=== PATIENT | female | born 1970 | race Caucasian/White ===

== ENCOUNTER 2018-11-27 09:10 | Inpatient (IN) ==
--- NOTE | 2018-11-27 09:14 | Emergency Department Note ---
Disposition Clinical Impression: Cough, Recurrent pneumonia, Non-cardiac chest pain, Lung mass, Pleural effusion Disposition: Admitted As Inpatient Referrals: Dakota Rahman DO [Primary Care Provider] - General Adult HPI - General Stated complaint: CP Time Seen by Provider: 11/27/18 09:13 - History of Present Illness HPI Narrative: 48-year-old female reports emergency department complaining of chest pain. The pain is in the middle of the chest radiating to the back. It hurts when she coughs. The patient states she has had pneumonia been treated with 5 rounds of antibiotics since July. She denies a history of prior coronary disease DVT PE or CHF. Per records there is a history of COPD no oxygen requirement. There has been no trauma to the chest. No syncope or leg swelling. No history of CHF. The patient denies abdominal pain, no vomiting diarrhea or currently. There is no history of vaginal discharge bleeding or urinary sy mptoms. No flank pain. No high fevers. The patient describes a recurrent cough. She denies any history of cancer. She has never had a cardiac catheterization or stress test or prior stent. No shortness of breath described. - Related Data Home Medications Medication Instructions Recorded Confirmed Esomeprazole Magnesium [Nexium] 20 mg PO DAILY 12/14/15 09/21/16 Fexofenadine/Pseudoephedrine 1 tab PO DAILY PRN 12/14/15 09/21/16 [Belle-D 24 Hour Tablet] Levothyroxine Sodium [Synthroid] 137 mcg PO DAILY 12/14/15 09/21/16 Lactobacillus [Culturelle] 1 cap PO BID 09/21/16 09/21/16 Previous Rx's Medication Instructions Recorded Acetaminophen [Tylenol] 650 mg PO Q6HR PRN #0 tablet 12/28/15 HYDROcodone/Acet 5/325 mg [[place] 0.5 tab PO Q6HR PRN #15 tablet 12/28/15 5-325 mg] Allergies Allergy/AdvReac Type Severity Reaction Status Date / Time ciprofloxacin [From Cipro] AdvReac Diarrhea Verified 12/14/15 14:21 All systems ED: reviewed and negative except as stated. Past Medical History - Past Medical History Medical history: Reports: COPD, GERD, other Surgical history: Reports: , hysterectomy Psychiatric history: Reports: no psych history - Social History Smoking Status: Current every day smoker Smokeless Tobacco Status: No Alcohol use: Reports: occasionally Drug use: Reports: none Physical Exam - General Limitations: no limitations General appearance: alert, in no apparent distress - Head Head exam: atraumatic, normocephalic, normal inspection - Eye Eye exam: Present: normal appearance, PERRL, EOMI - ENT ENT exam: normal exam, normal oropharynx, mucous membranes moist - Neck Neck exam: Present: normal inspection, full ROM, trachea midline - Chest Chest inspection: Present: normal inspection, symmetric chest wall rise - Respiratory Respiratory exam: Present: normal lung sounds bilaterally. Absent: respiratory distress, prolonged expiratory phase - Cardiovascular Cardiovascular exam: Present: regular rate, normal rhythm, normal heart sounds - Abdominal Exam Abdominal exam: Present: soft, Non-Tender, normal bowel sounds. Absent: tenderness, distention, guarding, rebound, rigidity - Extremities Exam Extremities exam: Present: full ROM, normal capillary refill. Absent: normal inspection (Chronic deformity right upper extremity. The left upper and lower extremities are unremarkable in appearance.), tenderness, pedal edema, joint swelling, calf tenderness - Expanded Lower Extremity Exam Lower leg exam: Absent: Homans' sign Neurovascular/Tendon exam: Present: normal capillary refill. Absent: motor deficit, sensory deficit, tendon deficit, extremity cold to touch, pallor - Back Exam Back exam: Present: normal inspection, full ROM. Absent: tenderness, CVA tenderness (L), muscle spasm - Neurological Exam Neurological exam: Present: alert, oriented X3, CN II-XII intact. Absent: motor sensory deficit - Psychiatric Psychiatric exam: Present: normal affect, normal mood - Skin Skin exam: Present: warm, dry, intact, normal color Course Vital Signs Temperature 98.3 F 11/27/18 09:18 Pulse Rate 98 11/27/18 09:18 Respiratory Rate 11/27/18 09:18 Blood Pressure 134/89 11/27/18 09:18 O2 Sat by Pulse Oximetry 99 11/27/18 09:18 Temperature 98.3 F 11/27/18 09:18 Pulse Rate 98 11/27/18 09:18 Respiratory Rate 11/27/18 09:18 Blood Pressure 134/89 11/27/18 09:18 O2 Sat by Pulse Oximetry 99 11/27/18 09:18 Oxygen Delivery Oxygen Delivery Room Air Medical Decision Making - MDM Narrative Medical decision making narrative: The patient reports emergency department describing chest pain and a cough. She has no personal history of CAD DVT PE or cancer. She has been treated 5 times for pneumonia in the last several months but is not improving. Chest x-ray suggestive of malignancy, CT shows notable abnormalities highly suggestive of malignancy and for possible infiltrate with pleural effusion. The patient is hyponatremic, she has a depressed white count, lactic acid is negative. EKG normal sinus rhythm troponin negative. Azithromycin and Rocephin were ordered. Blood cultures were sent. The patient was given hydrocodone for pain. Based on the patient's apparent extensive malignancy, new diagnosis, with overlapping pneumonia pleural effusion I thought it be appropriate to admit the patient to the hospital. I discussed the case with the hospitalist on-call who has accepted the patient to their care. The patient is agreeable and is currently stable pending admission. - Lab Data Lab results reviewed: Yes I reviewed the patient's lab results. Result diagrams: 11/27/18 09:39 11/27/18 09:39 Lab Results 11/27/18 11/27/18 11/27/18 Range/Units 09:39 09:39 09:39 WBC 4.0 L (4.3-11.1) K/mcL RBC 4.62 (3.82-4.97) M/mcL Hgb 14.3 (11.5-15.4) g/dL Hct 40.1 (35.3-44.9) % MCV 86.8 (83.0-100.0) fL MCH 31.0 (28.0-33.3) pg MCHC 35.7 H (31.6-35.5) g/dL RDW 11.7 (11.5-14.5) % Plt Count 161 (140-400) K/mcL MPV 10.6 (9.4-12.4) fL Immature Gran % 0.5 (0-4) % Seg Neutrophils % 70.6 % Lymphocytes % 19.7 % Monocytes % 8.5 % Eosinophils % 0.5 % Basophils % 0.2 % Neutrophils # 2.8 (1.6-8.9) K/mcL Lymphocytes # 0.8 (0.6-4.6) K/mcL Monocytes # 0.3 (0.0-1.3) K/mcL Eosinophils # 0.0 (0.0-0.6) K/mcL Basophils # 0.0 (0.0-0.2) K/mcL PT 12.0 (9.4-12.1) Seconds INR 1.1 APTT 32.4 (26.0-36.0) Seconds Sodium 126 L (136-145) mEq/L Potassium 3.8 (3.5-5.1) mEq/L Chloride 94 L (98-107) mEq/L Carbon Dioxide 21 L (23-29) mEq/L BUN 7 (6-20) mg/dL Creatinine 0.50 L (0.60-1.20) mg/dL Est GFR ( Amer) > 60 (> 60) Est GFR (Non-Af Amer) > 60 (> 60) BUN/Creatinine Ratio 14 (6-26) Glucose 83 (70-105) mg/dL Calculated Osmolality 259 L (280-300) Lactic Acid (0.5-2.2) mmol/L Calcium 9.7 (8.6-10.3) mg/dL Total Bilirubin 0.6 (0.3-1.0) mg/dL Direct Bilirubin 0.1 (0.0-0.2) mg/dL Indirect Bilirubin 0.5 (0.0-1.2) mg/dL AST 14 (13-39) Units/L ALT 10 (7-52) Units/L Alkaline Phosphatase 61 (34-104) Units/L Troponin I < 0.03 (< 0.04) ng/mL C-Reactive Protein 29 H (Less than 10) mg/L Serum Total Protein 6.6 (6.4-8.9) g/dL Albumin 4.0 (3.5-5.7) g/dL Globulin 2.6 (2.4-3.5) g/dL Albumin/Globulin Ratio 1.5 (1.1-2.2) Lipase 4 L (11-82) Units/L 11/27/18 Range/Units 09:50 WBC (4.3-11.1) K/mcL RBC (3.82-4.97) M/mcL Hgb (11.5-15.4) g/dL Hct (35.3-44.9) % MCV (83.0-100.0) fL MCH (28.0-33.3) pg MCHC (31.6-35.5) g/dL RDW (11.5-14.5) % Plt Count (140-400) K/mcL MPV (9.4-12.4) fL Immature Gran % (0-4) % Seg Neutrophils % % Lymphocytes % % Monocytes % % Eosinophils % % Basophils % % Neutrophils # (1.6-8.9) K/mcL Lymphocytes # (0.6-4.6) K/mcL Monocytes # (0.0-1.3) K/mcL Eosinophils # (0.0-0.6) K/mcL Basophils # (0.0-0.2) K/mcL PT (9.4-12.1) Seconds INR APTT (26.0-36.0) Seconds Sodium (136-145) mEq/L Potassium (3.5-5.1) mEq/L Chloride (98-107) mEq/L Carbon Dioxide (23-29) mEq/L BUN (6-20) mg/dL Creatinine (0.60-1.20) mg/dL Est GFR ( Amer) (> 60) Est GFR (Non-Af Amer) (> 60) BUN/Creatinine Ratio (6-26) Glucose (70-105) mg/dL Calculated Osmolality (280-300) Lactic Acid 0.5 (0.5-2.2) mmol/L Calcium (8.6-10.3) mg/dL Total Bilirubin (0.3-1.0) mg/dL Direct Bilirubin (0.0-0.2) mg/dL Indirect Bilirubin (0.0-1.2) mg/dL AST (13-39) Units/L ALT (7-52) Units/L Alkaline Phosphatase (34-104) Units/L Troponin I (< 0.04) ng/mL C-Reactive Protein (Less than 10) mg/L Serum Total Protein (6.4-8.9) g/dL Albumin (3.5-5.7) g/dL Globulin (2.4-3.5) g/dL Albumin/Globulin Ratio (1.1-2.2) Lipase (11-82) Units/L - Radiology Data Radiology results reviewed: Yes I reviewed the patient's radiology results.
[2018-11-27] MEDS ORDERED: Isovue-370 500 ML BOTTLE IVP ONE (09:30)
[2018-11-27] MEDS ORDERED: *HR* HYDROcodone/Acet 5/325 mg TABLET PO ONE (09:39)
[2018-11-27 10:03] LABS: Basophils % 0.2 %; Eosinophils % 0.5 %; Hematocrit 40.1 % (35.3-44.9); Hemoglobin 14.3 g/dL (11.5-15.4); Immature Granulocytes % 0.5 % (0-4); Lymphocytes # 0.8 K/mcL (0.6-4.6); Lymphocytes % 19.7 %; Mean Corpuscular HGB Conc 35.7 g/dL (31.6-35.5); Mean Corpuscular Volume 86.8 fL (83.0-100.0); Mean Platelet Volume 10.6 fL (9.4-12.4); Monocytes # 0.3 K/mcL (0.0-1.3); Monocytes % 8.5 %; Neutrophils # 2.8 K/mcL (1.6-8.9); Platelet Count 161 K/mcL (140-400); Red Blood Count 4.62 M/mcL (3.82-4.97); Red Cell Distribution Width 11.7 % (11.5-14.5); Segmented Neutrophils % 70.6 %
[2018-11-27 10:10] LABS: INR 1.1
[2018-11-27 10:13] LABS: Activated Partial Thrombo Time 32.4 Seconds (26.0-36.0)
[2018-11-27 10:25] LABS: Alanine Aminotransferase 10 Units/L (7-52); Albumin/Globulin Ratio 1.5 (1.1-2.2); Alkaline Phosphatase 61 Units/L (34-104); Aspartate Amino Transferase 14 Units/L (13-39); BUN/Creatinine Ratio 14 (6-26); Bilirubin,Direct 0.1 mg/dL (0.0-0.2); Bilirubin,Indirect 0.5 mg/dL (0.0-1.2); Bilirubin,Total 0.6 mg/dL (0.3-1.0); Blood Urea Nitrogen 7 mg/dL (6-20); C-Reactive Protein 29 mg/L (Less than 10); Calcium 9.7 mg/dL (8.6-10.3); Carbon Dioxide 21 mEq/L (23-29); Chloride 94 mEq/L (98-107); Globulin 2.6 g/dL (2.4-3.5); Glucose 83 mg/dL (70-105); Lipase 4 Units/L (11-82); Osmolality,Calculated 259 (280-300); Potassium 3.8 mEq/L (3.5-5.1); Sodium 126 mEq/L (136-145); Total Protein 6.6 g/dL (6.4-8.9); Troponin I < 0.03 ng/mL (< 0.04); eGFR For Non-African Americans > 60 (> 60)
[2018-11-27] MEDS ORDERED: cefTRIAXone 1,000 MG in Water for inj. (sterile) 20 ML 10 ML IVP ONE (12:22)
[2018-11-27] MEDS ORDERED: Azithromycin 500 MG in D5% in Water 250 ML IVPB ONE (12:22)
[2018-11-27] MEDS ORDERED: traMADol 50 MG TABLET PO PRN (13:03)
[2018-11-27] MEDS ORDERED: Acetaminophen 325 MG TABLET PO PRN (13:03)
[2018-11-27] MEDS ORDERED: Naloxone 0.4 MG/ML INJ IVP PRN (13:03)
[2018-11-27] MEDS ORDERED: Ondansetron 4 MG/2 ML VIAL IVP PRN (13:03)
[2018-11-27] MEDS ORDERED: *HR* OxyCODONE Immed Rel 5 MG TABLET PO PRN (13:03)
[2018-11-27] MEDS ORDERED: Levalbuterol Neb 0.63 MG/3 ML IH PRN (13:06)
--- NOTE | 2018-11-27 13:13 | Internal Med History&Physical ---
Date of Encounter: 11/27/18 Time of Encounter: 12:50 Internal Medicine - H&P: HPI Chief complaint: R upper chest pain Admitted From: Home History of present illness: Ms. Greenwood is a 48 year old female with history of tobacco use with 45 pack year history, hypothyroidism, presented to the ED with right upper chest pain. She states that, since July 2018, she had been battling recurrent bronchitis/pneumonia and was on antibiotics as well as steroids intermittently prescribed by her PCP. For the last 3 days, she was experiencing worsening right upper chest pain underneath her clavicle and decided to come to the ED for further evaluation. She also endorses 10 pound weight loss over the last month as well as poor appetite. No diaphoresis, nausea/vomiting, cough, sputum production, orthopnea, PND, or leg swelling. Denies any GI/ symptoms. In the ED, she was afebrile and hemodynamically stable. Labwork showed white blood ce ll count of 4, sodium of 126, and negative troponin. Lactic acid was also normal. Patient had CT angios of the chest which demonstrated large tumor extending from the right central lung into the right hilar area and mediastinum associated with encasement of central bronchi/vessels R>L and mediastinal lymphadenopathy. It also showed foci of PNA on RUL. No PE. Patient was started on IV Rocephin and azithromycin and admitted for further management. Past Med Surg Social Fam HX - Past Medical History Attestation: Yes The following information was validated with the patient. Medical history: GERD, thyroid disease, other Additional medical history: diverticulosis Psychiatric history: no psych history - Past Surgical History Surgical History: , hysterectomy Additional surgical history: ovary,colon resection - Social History Smoking Status: Current every day smoker Smokeless Tobacco Status: No Alcohol use: occasionally Drug use: none - Additional Family History Additional family history: Reviewed and negative for pulmonary malignancy Internal Medicine - H&P: Meds Esomeprazole Magnesium [Nexium] 20 mg PO DAILY 12/14/15 [History] Fexofenadine/Pseudoephedrine [[place]elle-D 24 Hour Tablet] 1 tab PO DAILY PRN 12/14/15 [History] Levothyroxine Sodium [Synthroid] 137 mcg PO DAILY 12/14/15 [History] Acetaminophen [Tylenol] 650 mg PO Q6HR PRN #0 tablet 12/28/15 [Rx] HYDROcodone/Acet 5/325 mg [[place] 5-325 mg] 0.5 tab PO Q6HR PRN #15 tablet 12/28/15 [Rx] Lactobacillus [Culturelle] 1 cap PO BID 09/21/16 [History] Allergy/AdvReac Type Severity Reaction Status Date / Time ciprofloxacin [From Cipro] AdvReac Diarrhea Verified 12/14/15 14:21 All Systems PM: A 10-system review of systems was performed and is negative for pertinent findings except as documented above in the HPI. - Constitutional Vitals: Temp Pulse Resp BP Pulse Ox 98.3 F 98 19 134/89 99 11/27/18 09:18 11/27/18 09:18 11/27/18 09:18 11/27/18 09:18 11/27/18 09:18 Exam: General: Alert and oriented, anxious HEENT:EOMI, pupils equal, round and reactive. Cardiovascular:Normal S1 & S2, No JVD. Pulse regular. Lungs: Unable to appreciate any rhonchi/wheezes Abdomen:Soft, non-tender, no rigidity. Extremities:No deformity or swelling Neurological:Normal cognition and motor skills. Non-focal Skin:Normal color, no rash, no lesions. Pulses:Carotid and radial pulses normal +2. Rest of the physical exam is non contributory Internal Med - H&P Results - Labs CBC & Chem 7: 11/27/18 09:39 11/27/18 09:39 Labs: Short CBC 11/27/18 Range/Units 09:39 WBC 4.0 L (4.3-11.1) K/mcL Hgb 14.3 (11.5-15.4) g/dL Hct 40.1 (35.3-44.9) % Plt Count 161 (140-400) K/mcL Neutrophils # 2.8 (1.6-8.9) K/mcL BMP 11/27/18 09:39 Sodium 126 L Potassium 3.8 Chloride 94 L Carbon Dioxide 21 L BUN 7 Creatinine 0.50 L Glucose 83 Calcium 9.7 Cardiac Enzymes 11/27/18 Range/Units 09:39 Troponin I < 0.03 (< 0.04) ng/mL Liver Function 11/27/18 Range/Units 09:39 Total Bilirubin 0.6 (0.3-1.0) mg/dL Direct Bilirubin 0.1 (0.0-0.2) mg/dL AST 14 (13-39) Units/L ALT 10 (7-52) Units/L Alkaline Phosphatase 61 (34-104) Units/L Albumin 4.0 (3.5-5.7) g/dL - Impressions ITS Impressions Chest X-Ray 11/27/18 09:14 IMPRESSION: Right upper lobe opacity as well as prominent right hilum suspicious for possible mass with adenopathy. Alternatively this may represent an infiltrate. RECOMMENDATION: Chest CT with contrast to rule out neoplasm D/ / 11/27/2018 10:20:17 [facility] Inter[facility] Provider: Mariah Conley MD Chest CTA 11/27/18 09:30 IMPRESSION: 1. Extensive malignancy with a large tumor extending from the right central lung into the right hilar area and mediastinum. 2. Encasement of central bronchi and vessels mostly on the right. 3. Mediastinal lymphadenopathy. Supraclavicular lymphadenopathy especially on the left. 4. Foci of pneumonia in the right upper lobe. Small right pleural effusion. 5. No evidence of acute pulmonary embolism. RECOMMENDATIONS: Bronchoscopic biopsy D/ / 11/27/2018 12:23:15 [facility] Interpreting Provider: Mariah Conley MD - Assessment and Plan (1) Lung mass Current Visit: Yes Status: Acute Assessment and plan: Presented with unresolving pneumonia and right upper chest discomfort Incidentally, CTA showed R lung mass with mediastinal lymphadenopathy Highly suspicious for malignant process, history of 45 pack year smoking pulm consult for possible bronch + bx (2) Pneumonia Current Visit: Yes Status: Acute Assessment and plan: In addition to the lung mass, foci of pneumonia identified on the right upper lobe Jaren/azithromycin strep/legionella ag Pt reports adverse reaction to DuoNeb previously, will use Xopenex when necessary follow up on blood cultures pulm consulted for possible bronch, will not send sputum culture Qualifiers: Pneumonia type: due to unspecified organism Laterality: right Lung location: upper lobe of lung Qualified Code(s): J18.1 - Lobar pneumonia, unspecified organism (3) GERD (gastroesophageal reflux disease) Current Visit: Yes Status: Chronic Assessment and plan: Resume home meds once reconciled Qualifiers: Esophagitis presence: esophagitis presence not specified Qualified Code(s): K21.9 - Gastro-esophageal reflux disease without esophagitis (4) Hypothyroid Current Visit: Yes Status: Chronic Assessment and plan: Resume home meds once reconciled Qualifiers: Hypothyroidism type: unspecified Qualified Code(s): E03.9 - Hypothyroidism, unspecified (5) DVT prophylaxis Current Visit: Yes Status: Acute Assessment and plan: EPCD - Time Spent With Patient Total time spent is greater than 50% in coordination of care (as documented) at patient's floor/unit and/or counseling patient: 25 - 35 minutes
--- NOTE | 2018-11-27 13:57 | Pulmonology Consult Note ---
<Estelle Ji - Last Filed: 11/27/18 14:20> Date of Encounter: 11/27/18 Time of Encounter: 13:30 Assessment and Plan (1) Lung mass Current Visit: Yes Status: Acute 48-year-old female with [id number] history presented to the ED complaining of pleuritic chest pain and dyspnea ongoing since July 2018. CTA of the chest shows extensive large mass from the right central lung into the right hilar area and mediastinum. Encasement of central bronchi and vessel mostly on the right side. Mediastinal lymphadenopathy with supraclavicular lymphadenopathy on the left. Could be secondary to malignancy small cell versus squamous cell given her h istory of smoking. She is hyponatremic with low serum osmolality suggesting SIADH. Avoid fluids given findings suggestive of SIADH. Nothing by mouth after midnight for planned bronchoscopy tomorrow. Avoid anticoagulation prior to bronchoscopy. (2) Pleuritic chest pain Current Visit: Yes Status: Acute Presented to the ED complaining of chest pain upon deep inspiration. She complained of cough ongoing since July and has been treated for "pneumonia" with 5 rounds of antibiotics. She is having worsening shortness of breath with exertion. She denies orthopnea or PND. Could be secondary to the lung mass evident on CTA. Nothing by mouth after midnight. Bronchoscopy planned for tomorrow. (3) Hyponatremia Current Visit: Yes Status: Acute Sodium noted to be 126 with low serum osmolality 259. She denies any recent emesis but does not report recent onset of loose stools 2 episodes per day. Hyponatremia is likely due to underlying suspected malignancy. Avoid IV fluids. Fluid restriction to 1.5 L. Plan for bronchoscopy tomorrow. History of Present Illness Reason for consult: dyspnea, other (mass) History of present illness: Ms. Greenwood is a 45-year-old female with past medical history of hypothyroidism and [id number] history. She presented to the ED complaining of diffuse chest pain upon deep inspiration. She reports that since July she has been having recurrent episodes of dyspnea as well as productive cough for which she is being treated for by antibiotics. She denies dyspnea at rest but notes that she has extensive dyspnea with exertion. She has been treated 3 different times with Keflex and twice with ciprofloxacin for "pneumonia." She is also been prescribed steroids 4 different times. She reports she completed all her antibiotic regimen and continues to have dyspnea. She has not had any recent imaging of her chest since the onset of her symptoms. She also reports 10 pound weight loss in the past month which is associated with anorexia as well as nausea. She denies any emesis or hematemesis. She also denies any recent travel outside the country or recent exposure to sick individuals. 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 She denies any exposure to animals other than her pet dog. She is also reporting loose stools for the past week but denies hematochezia. In the ED she was noted to have sodium of 126 and troponins were negative. CTA of the chest shows large tumor from the right central lung into the right hilar area and mediastinum. Also noted to have encasement of central bronchi and vessels mostly in the right. And has mediastinal lymphadenopathy with supraclavicular lymphadenopathy especially on the left side. She denies fever, chills, abdominal pain. Past Med Surg Social Fam HX - Past Medical History Medical history: GERD, thyroid disease, other Additional medical history: diverticulosis Psychiatric history: no psych history - Past Surgical History Surgical History: , hysterectomy Additional surgical history: ovary,colon resection - Social History Smoking Status: Current every day smoker Smokeless Tobacco Status: No Alcohol use: occasionally Drug use: none Medications and Allergies Esomeprazole Magnesium [Nexium] 20 mg PO DAILY 12/14/15 [History] Fexofenadine/Pseudoephedrine [Belle-D 24 Hour Tablet] 1 tab PO DAILY PRN 0 12/14/15 [History] Levothyroxine Sodium [Synthroid] 137 mcg PO DAILY 12/14/15 [History] Acetaminophen [Tylenol] 650 mg PO Q6HR PRN #0 tablet 12/28/15 [Rx] HYDROcodone/Acet 5/325 mg [[place] 5-325 mg] 0.5 tab PO Q6HR PRN #15 tablet 12/28/15 [Rx] Lactobacillus [Culturelle] 1 cap PO BID 09/21/16 [History] Allergy/AdvReac Type Severity Reaction Status Date / Time ciprofloxacin [From Cipro] AdvReac Diarrhea Verified 12/14/15 14:21 All Systems: The remainder of the systems were reviewed and are negative - Constitutional Constitutional: no chills, no fever(s), no weakness - Cardiovascular Cardiovascular: dyspnea on exertion, no chest pain, no chest pain at rest, no chest pain with activity, no dyspnea, no edema, no palpitations, no paroxysmal nocturnal dyspnea - Respiratory Respiratory: cough, dyspnea - Gastrointestinal Gastrointestinal: diarrhea, no hematemesis, no hematochezia - Neurological Neurological: no headache(s), no numbness, no syncope, no vertigo - Psychiatric Psychiatric: no anxiety, no depression Physical Examination General appearance: no acute distress, alert ENT: oropharynx moist Auscultation: bilateral: clear Cardiovascular: regular rate and rhythm Gastrointestinal: normoactive bowel sounds, soft, non-tender Integumentary: normal Extremities: no edema Musculoskeletal: other (congenital right arm deformity) non-focal exam, pupils equal and round mood appropriate, affect normal Results - Laboratory Findings CBC and BMP: 11/27/18 09:39 11/27/18 09:39 PT/INR, D-dimer PT 12.0 Seconds (9.4-12.1) 11/27/18 09:39 Abnormal lab findings: Abnormal lab results WBC 4.0 K/mcL (4.3-11.1) L 11/27/18 09:39 MCHC 35.7 g/dL (31.6-35.5) H 11/27/18 09:39 Sodium 126 mEq/L (136-145) L 11/27/18 09:39 Chloride 94 mEq/L (98-107) L 11/27/18 09:39 Carbon Dioxide 21 mEq/L (23-29) L 11/27/18 09:39 Creatinine 0.50 mg/dL (0.60-1.20) L 11/27/18 09:39 Calculated Osmolality 259 (280-300) L 11/27/18 09:39 C-Reactive Protein 29 mg/L (Less than 10) H 11/27/18 09:39 Lipase 4 Units/L (11-82) L 11/27/18 09:39 - Microbiology Findings Microbiology Findings: Microbiology, Last 48 Hours 11/27/18 10:41 Influenza Types A,B Antigen - Final Nasopharyngeal 11/27/18 09:50 Blood Culture - Preliminary Peripheral Venipuncture Culture is incubating and being continuously monitored for growth. Final report to follow. 11/27/18 09:45 Blood Culture - Preliminary Peripheral Venipuncture Culture is incubating and being continuously monitored for growth. Final report to follow. - Clinical Findings Intake & Output: Intake & Output 11/26/18 11/27/18 11/27/18 23:59 07:59 15:59 Weight 66.814 kg Consult Discharge Plan - Plan Referrals: Dakota Rahman DO [Primary Care Provider] - <Cuate Varela - Last Filed: 11/27/18 15:06> Date of Encounter: 11/27/18 All Systems: The remainder of the systems were reviewed and are negative Results - Laboratory Findings CBC and BMP: 11/27/18 09:39 11/27/18 09:39 PT/INR, D-dimer PT 12.0 Seconds (9.4-12.1) 11/27/18 09:39 Abnormal lab findings: Abnormal lab results WBC 4.0 K/mcL (4.3-11.1) L 11/27/18 09:39 MCHC 35.7 g/dL (31.6-35.5) H 11/27/18 09:39 Sodium 126 mEq/L (136-145) L 11/27/18 09:39 Chloride 94 mEq/L (98-107) L 11/27/18 09:39 Carbon Dioxide 21 mEq/L (23-29) L 11/27/18 09:39 Creatinine 0.50 mg/dL (0.60-1.20) L 11/27/18 09:39 Calculated Osmolality 259 (280-300) L 11/27/18 09:39 C-Reactive Protein 29 mg/L (Less than 10) H 11/27/18 09:39 Lipase 4 Units/L (11-82) L 11/27/18 09:39 - Microbiology Findings Microbiology Findings: Microbiology, Last 48 Hours 11/27/18 10:41 Influenza Types A,B Antigen - Final Nasopharyngeal 11/27/18 09:50 Blood Culture - Preliminary Peripheral Venipuncture Culture is incubating and being continuously monitored for growth. Final report to follow. 11/27/18 09:45 Blood Culture - Preliminary Peripheral Venipuncture Culture is incubating and being continuously monitored for growth. Final report to follow. - Clinical Findings Intake & Output: Intake & Output 11/26/18 11/27/18 11/27/18 23:59 07:59 15:59 Weight 66.814 kg - Attending Attestation I examined this patient and my medical decision-making was reviewed with the Resident Physician. I agree with the documented findings, disposition and glen tment plan as described except to the extent set forth below. Patient seen and examined. Labs, radiology, chart personally reviewed. Agree with resident's history and physical, assessment, plan with following comments: BRIM STRETCHER: Patient follows commands, Pulmonary: Acceptable oxygenation and ventilation I have seen and examined this patient and discussed with the primary team. This is very concerning for lung cancer and suspect most likely this will be a small cell lung cancer especially with her hyponatremia. Patient will need to be on fluid restriction and have explained to her that biopsy needs to be done to establish the diagnosis since other diseases in the differential diagnosis such as infections and sarcoidosis which is less likely. I have told her all the risks, alternative, benefits of the procedure and she understand and agree to have it done. At this time on working to arrange procedure for her tomorrow and if there will be no time available then she needs to be transferred to another facility where they can do this fasting or and this was communicated with primary team, however we will do our best to accommodate time for her.A bronchoscopy is recommended. The procedure , risks, benefits, complications, and expected outcomes have been reviewed. Benefits of diagnosis, as well as risks to include bleeding, infection, pneumothorax which may require surgical intervention, and in a small population. The patient is aware that sometimes test is nondiagnostic. Discussed with patient and agrees to proceed. Patient has history of smoking and she was told she needs to quit smoking and she understand that. Thank you for consultation.
[2018-11-27] MEDS: *HR* HYDROcodone/Acet 5/325 mg TABLET PO PRN ×2 (17:47→23:33)
--- NOTE | 2018-11-27 19:14 | Anesthesia Evaluation PreOp ---
Date of Encounter: 11/27/18 Time of Encounter: 19:38 - Past History Planned Operation: EBUS Cardiac History: Denies any Significant Hx Pulmonary History: Smoker (30 years), COPD, Snore PRICING ASSOCIATE History: Denies Any Significant HX Other Medical History: Thyroid, GERD, Other (hyponatremia) Anesthesia History: No Prior Anesthetic Complications, Past Anesthesia (hysterectomy) Alcohol Use: occasionally Drug use: none Medications and Allergies Esomeprazole Magnesium [Nexium] 20 mg PO DAILY 12/14/15 [History] Fexofenadine/Pseudoephedrine [Belle-D 24 Hour Tablet] 1 tab PO DAILY PRN 11/25 [History] Levothyroxine Sodium [Synthroid] 137 mcg PO DAILY 12/14/15 [History] Acetaminophen [Tylenol] 650 mg PO Q6HR PRN #0 tablet 12/28/15 [Rx] HYDROcodone/Acet 5/325 mg [[place] 5-325 mg] 0.5 tab PO Q6HR PRN #15 tablet 12/28/15 [Rx] Lactobacillus [Culturelle] 1 cap PO BID 09/21/16 [History] Allergy/AdvReac Type Severity Reaction Status Date / Time ciprofloxacin [From Cipro] AdvReac Diarrhea Verified 12/14/15 14:21 - Meds/Allergy Pre-op Review Medications Reviewed: Yes Allergies Reviewed: Yes Beta Blockers on Current Med List: No Anesthesia Results - Labs 11/27/18 09:39 11/27/18 09:39 - Imaging EKG: report reviewed (12/14/2015 SINUS RHYTHM NORMAL ECG) Chest x-ray: report reviewed (11/27/2018 IMPRESSION: Right upper lobe opacity as well as prominent right hilum suspicious for possible mass with adenopathy. Alternatively this may represent an infiltrate. RECOMMENDATION: Chest CT with contrast to rule out neoplasm) Additional studies: 11/27/[address] IMPRESSION: 1. Extensive malignancy with a large tumor extending from the right central lung into the right hilar area and mediastinum. 2. Encasement of central bronchi and vessels mostly on the right. 3. Mediastinal lymphadenopathy. Supraclavicular lymphadenopathy especially on the left. 4. Foci of pneumonia in the right upper lobe. Small right pleural effusion. 5. No evidence of acute pulmonary embolism. RECOMMENDATIONS: Bronchoscopic biopsy Anesthesia Exam Vital Signs/O2 Sat, Most Current Temp Pulse Resp BP Pulse Ox 98.5 F 75 18 120/79 95 11/27/18 16:48 11/27/18 16:48 11/27/18 16:48 11/27/18 16:48 11/27/18 16:49 Height: 5'4''/1.63m Weight: 147 lbs/66.8 kg NPO (# of Hours): 8 Pain Scale: 4 (upper chest) Pain Scale Used: Numeric (1 - 10) - HEENT Pupil (Motor): EOMI Mallampati: II Teeth: Normal Oral Opening: Greater than 3 - PRICING ASSOCIATE LOC: Oriented PRICING ASSOCIATE Motor: Normal RUE, Normal LUE, Normal RLE, Normal LLE, Normal Face PRICING ASSOCIATE Sensory: Normal: RUE, LUE, RLE, LLE, Face - Cardiac Rhythm: Regular Murmur: None - Pulmonary Breath Sounds: bilateral Clear Respiratory Effort: Symmetrical Anesthesia Assess/Plan ASA Score: 3 Level of consciousness: Cooperative, Oriented, Tranquil Anesthetic Plan: General Monitoring Plan: Standard Monitors Recovery Plan: PACU
[2018-11-28] MEDS: *HR* HYDROcodone/Acet 5/325 mg TABLET PO PRN ×3 (05:45→19:13)
[2018-11-28 06:42] LABS: Hematocrit 37.4 % (35.3-44.9); Hemoglobin 13.3 g/dL (11.5-15.4); Mean Corpuscular HGB Conc 35.6 g/dL (31.6-35.5); Mean Corpuscular Hemoglobin 31.1 pg (28.0-33.3); Mean Corpuscular Volume 87.4 fL (83.0-100.0); Mean Platelet Volume 10.2 fL (9.4-12.4); Platelet Count 149 K/mcL (140-400); Red Blood Count 4.28 M/mcL (3.82-4.97); Red Cell Distribution Width 11.9 % (11.5-14.5)
[2018-11-28 07:03] LABS: BUN/Creatinine Ratio 16 (6-26); Blood Urea Nitrogen 8 mg/dL (6-20); Calcium 9.4 mg/dL (8.6-10.3); Carbon Dioxide 25 mEq/L (23-29); Chloride 93 mEq/L (98-107); Glucose 83 mg/dL (70-105); Magnesium 1.8 mg/dL (1.6-2.6); Osmolality,Calculated 259 (280-300); Potassium 3.7 mEq/L (3.5-5.1); Sodium 126 mEq/L (136-145); eGFR For Non-African Americans > 60 (> 60)
--- NOTE | 2018-11-28 08:31 | Internal Med Progress Note ---
Hospitalist Progress Note - Encounter Date of Encounter: 11/28/18 Time of Encounter: 20:00 - Subjective Interval History: Patient scheduled for bronchoscopy evaluation of extensive lung mass found on CT of the chest. - Exam Vitals: Temp Pulse Resp BP Pulse Ox 98.0 F 78 18 129/71 94 11/28/18 07:10 11/28/18 07:10 11/28/18 07:10 11/28/18 07:10 11/28/18 07:10 Exam: Gen.: Nonacute distress, alert and oriented 3 ENT: Mucosal membranes moist Skin: Normal colory - Assessment and Plan (1) Lung mass Current Visit: Yes Status: Acute Assessment and Plan: Presented with unresolving pneumonia and right upper chest discomfort On CT of the chest patient was found to have extensive bleeding is seen with large tumor extending from the right central lung into the right hilar area and mediastinum with mediastinal lymphadenopathy and subclavicular lymphadenopathy in addition to foci of pneumonia in the right upper lobe. Pulmonology consulted with recommendations for bronchoscopy today Will continue IV ceftriaxone and IV azithromycin for right upper lobe pneumonia (2) Pneumonia Current Visit: Yes Status: Acute Assessment and Plan: Management with IV antibiotics as above (3) GERD (gastroesophageal reflux disease) Current Visit: Yes Status: Chronic Assessment and Plan: Continue home dose of Nexium 20 mg daily (4) Hypothyroid Current Visit: Yes Status: Chronic Assessment and Plan: Continue home dose of levothyroxine DVT Prophylaxis: SCDs - Time Spent with Patient Total time spent is greater than 50% in coordination of care (as documented) at patient's floor/unit and/or counseling patient: Internal Medicine: Result - Labs CBC & Chem 7: 11/28/18 05:50 11/28/18 05:50 Labs: Short CBC 11/27/18 11/28/18 Range/Units 09:39 05:50 WBC 4.0 L 3.2 L (4.3-11.1) K/mcL Hgb 14.3 13.3 (11.5-15.4) g/dL Hct 40.1 37.4 (35.3-44.9) % Plt Count 161 149 (140-400) K/mcL Neutrophils # 2.8 (1.6-8.9) K/mcL BMP 11/27/18 11/28/18 09:39 05:50 Sodium 126 L 126 L Potassium 3.8 3.7 Chloride 94 L 93 L Carbon Dioxide 21 L 25 BUN 7 8 Creatinine 0.50 L 0.51 L Glucose 83 83 Calcium 9.7 9.4 Cardiac Enzymes 11/27/18 Range/Units 09:39 Troponin I < 0.03 (< 0.04) ng/mL Liver Function 11/27/18 Range/Units 09:39 Total Bilirubin 0.6 (0.3-1.0) mg/dL Direct Bilirubin 0.1 (0.0-0.2) mg/dL AST 14 (13-39) Units/L ALT 10 (7-52) Units/L Alkaline Phosphatase 61 (34-104) Units/L Albumin 4.0 (3.5-5.7) g/dL - ABG Interpretation ABG results: PT/INR, D-dimer PT 12.0 Seconds (9.4-12.1) 11/27/18 09:39 - Impressions Impressions Chest X-Ray 11/27/18 09:14 IMPRESSION: Right upper lobe opacity as well as prominent right hilum suspicious for possible mass with adenopathy. Alternatively this may represent an infiltrate. RECOMMENDATION: Chest CT with contrast to rule out neoplasm D/ / 11/27/2018 10:20:17 Mariah Conley MD / [facility] Interpreting Provider: Mariah Conley MD Chest CTA 11/27/18 09:30 IMPRESSION: 1. Extensive malignancy with a large tumor extending from the right central lung into the right hilar area and mediastinum. 2. Encasement of central bronchi and vessels mostly on the right. 3. Mediastinal lymphadenopathy. Supraclavicular lymphadenopathy especially on the left. 4. Foci of pneumonia in the right upper lobe. Small right pleural effusion. 5. No evidence of acute pulmonary embolism. RECOMMENDATIONS: Bronchoscopic biopsy D/ / 11/27/2018 12:23:15 Mariah Conley MD / [facility] Interpreting Provider: Mariah Conley MD Consult Discharge Plan - Plan Referrals: Dakota Rahman DO [Primary Care Provider] - (2) Pneumonia Qualifiers: Pneumonia type: due to unspecified organism Laterality: right Lung location: upper lobe of lung Qualified Code(s): J18.1 - Lobar pneumonia, unspecified organism (3) GERD (gastroesophageal reflux disease) Qualifiers: Esophagitis presence: esophagitis presence not specified Qualified Code(s): K21.9 - Gastro-esophageal reflux disease without esophagitis (4) Hypothyroid Qualifiers: Hypothyroidism type: unspecified Qualified Code(s): E03.9 - Hypothyroidism, unspecified
[2018-11-28] MEDS: Nicotine 14 MG PATCH.TD24 TD SCH ×2 (09:46→12:14)
[2018-11-28] MEDS: cefTRIAXone 1,000 MG in Water for inj. (sterile) 20 ML 10 ML IVP SCH (09:47)
[2018-11-28] MEDS: Azithromycin 500 MG in D5% in Water 250 ML IVPB SCH (09:48)
[2018-11-28] MEDS ORDERED: *HR* FentaNYL (PF) 100 MCG/2 ML VIAL ONE (10:46)
[2018-11-28] MEDS ORDERED: *HR* Midazolam HCl 2 MG/2 ML VIAL ONE (10:46)
[2018-11-28] MEDS ORDERED: *HR* Propofol 200 MG/20 ML VIAL IVP ONE (10:47)
[2018-11-28] MEDS ORDERED: Lidocaine -MPF 4% 5 ML AMPUL ONE (10:47)
[2018-11-28] MEDS ORDERED: Lidocaine -MPF 2% 2 ML VIAL ONE (10:47)
[2018-11-28] MEDS ORDERED: *HR* Succinylcholine 200 MG/10 ML VIAL IVP ONE (10:49)
[2018-11-28] MEDS ORDERED: Dexamethasone 4 MG/ML VIAL ONE (10:49)
[2018-11-28] MEDS ORDERED: Ondansetron 4 MG/2 ML VIAL ONE (10:49)
--- NOTE | 2018-11-28 11:39 | Electrocardiograph Report ---
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
[2018-11-28] MEDS ORDERED: *HR* Promethazine 25 MG/ML VIAL IVP PRN (11:45)
[2018-11-28] MEDS ORDERED: Albuterol 2.5 MG/3 ML NEBULIZER IH PRN (11:45)
[2018-11-28] MEDS ORDERED: Ondansetron 4 MG/2 ML VIAL IVP ONE (11:45)
[2018-11-28] MEDS ORDERED: EPHEDrine 50 MG/ML VIAL ONE (11:58)
--- NOTE | 2018-11-28 12:54 | Anesthesia Evaluation Post Op ---
Date of Encounter: 11/28/18 Time of Encounter: 13:00 - Vital Signs Vital Signs: Vital Signs/O2 Sat/Glucose, Most Current Temp Pulse Resp BP Pulse Ox 11/28/18 12:49 85 18 104/66 93 11/28/18 12:39 79 16 115/74 93 11/28/18 12:29 98.0 F 81 16 105/89 95 11/28/18 11:30 84 16 117/86 98 11/28/18 11:23 97.6 F 73 16 125/75 97 - Lungs Lungs: Clear Ascult./Percussion - Airway Airway: Non-obstructed - Cardiovascular Regular Rate - Mental Status Mental Status: Alert & Oriented, Answers Appropriately - Pain Pain Scale: 0 - Nausea Vomiting Nausea Vomiting: Not Present - Hydration Hydration: Ice chips - Discharge PostOp Status: Transfer Patient to floor
--- NOTE | 2018-11-28 13:39 | Pulmonology Progress Note ---
<Estelle Ji - Last Filed: 11/28/18 15:50> Date of Encounter: 11/28/18 Time of Encounter: 08:20 Assessment and Plan (1) Lung mass Current Visit: Yes Status: Acute 48-year-old female with [id number] history presented to the ED complaining of pleuritic chest pain and dyspnea ongoing since July 2018. Dyspnea and pleuritic chest pain has resolved since admission. CTA of the chest shows extensive large mass from the right central lung into the right hilar area and mediastinum. Encasement of central bronchi and vessel mostly on the right side. Mediastinal lymphadenopathy with supraclavicular lymphadenopathy on the left. Could be secondary to malignancy small cell versus squamous cell given her history of smoking. Continues to remain hyponatremic with low serum osmolality suggesting SIADH. Bronchoscopy scheduled for today. Pathology results pending. (2) Pleuritic chest pain Current Visit: Yes Status: Resolved Complained of pleuritic chest pain at presentation ongoing since July an echo. 5 rounds of antibiotics. Be secondary to right upper lobe pneumonia versus malignancy given the finding of large mass in the right central lung. Pleuritic chest pain has resolved since her admission. Continue current antibiotic regimen given suspected right upper lobe pneumonia. (3) Hyponatremia Current Visit: Yes Status: Acute Continues to have hyponatremia with low serum osmolality unchanged since admission. Continue to avoid IV fluids given suspected SIADH. Suspected secondary to malignancy given the finding of large mass in the right central lung and mediastinal lymphadenopathy. Pending pathology results status post bronchoscopy. Subjective Interval history: Ms. Greenwood was seen at bedside this morning. Her vitals remained stable ov ernight. Was resting comfortably on room air and reported her shortness of breath and pleuritic chest pain has significantly improved. She is nervous about the bronchoscopy this afternoon. He denies fever, chills, general pain, lower extreme edema. Objective PUL Vital signs: Last Vital Signs Temp 97.3 F L 11/28/18 12:59 Pulse 65 11/28/18 12:59 Resp 18 11/28/18 12:59 BP 104/72 11/28/18 12:59 Pulse Ox 94 11/28/18 12:59 General appearance: no acute distress, alert ENT: oropharynx moist Auscultation: bilateral: clear Cardiovascular: regular rate and rhythm Gastrointestinal: normoactive bowel sounds, soft, non-tender, non-distended Extremities: no cyanosis, no edema Musculoskeletal: no deformities normal mental status, pupils equal and round mood appropriate, affect normal Results - Laboratory Findings CBC and BMP: 11/28/18 05:50 11/28/18 05:50 PT/INR, D-dimer PT 12.0 Seconds (9.4-12.1) 11/27/18 09:39 Abnormal lab findings: Abnormal lab results WBC 3.2 K/mcL (4.3-11.1) L 11/28/18 05:50 MCHC 35.6 g/dL (31.6-35.5) H 11/28/18 05:50 Sodium 126 mEq/L (136-145) L 11/28/18 05:50 Chloride 93 mEq/L (98-107) L 11/28/18 05:50 Creatinine 0.51 mg/dL (0.60-1.20) L 11/28/18 05:50 Calculated Osmolality 259 (280-300) L 11/28/18 05:50 C-Reactive Protein 29 mg/L (Less than 10) H 11/27/18 09:39 Lipase 4 Units/L (11-82) L 11/27/18 09:39 - Microbiology Findings Microbiology Findings: Microbiology, Last 48 Hours 11/27/18 17:56 Legionella Antigen - Final Urine,Clean Catch Streptococcus pneumoniae Antigen (M - Final 11/27/18 10:41 Influenza Types A,B Antigen - Final Nasopharyngeal 11/27/18 09:50 Blood Culture - Preliminary Peripheral Venipuncture Culture is incubating and being continuously monitored for growth. Final report to follow. 11/27/18 09:45 Blood Culture - Preliminary Peripheral Venipuncture Culture is incubating and being continuously monitored for growth. Final report to follow. - Clinical Findings Intake & Output: Intake & Output 11/27/18 11/28/18 11/28/18 23:59 07:59 15:59 Intake Total 0 / 0 0 / 0 Output Total 0 / 0 Balance 0 / 0 0 / 0 Consult Discharge Plan - Plan Referrals: Dakota Rahman DO [Primary Care Provider] - <Cuate Varela - Last Filed: 11/28/18 17:05> Date of Encounter: 11/28/18 Objective PUL Vital signs: Last Vital Signs Temp 97.6 F 11/28/18 15:49 Pulse 83 11/28/18 15:49 Resp 17 11/28/18 15:49 BP 118/80 11/28/18 15:49 Pulse Ox 93 11/28/18 15:49 Results - Laboratory Findings CBC and BMP: 11/28/18 05:50 11/28/18 05:50 PT/INR, D-dimer PT 12.0 Seconds (9.4-12.1) 11/27/18 09:39 Abnormal lab findings: Abnormal lab results WBC 3.2 K/mcL (4.3-11.1) L 11/28/18 05:50 MCHC 35.6 g/dL (31.6-35.5) H 11/28/18 05:50 Sodium 126 mEq/L (136-145) L 11/28/18 05:50 Chloride 93 mEq/L (98-107) L 11/28/18 05:50 Creatinine 0.51 mg/dL (0.60-1.20) L 11/28/18 05:50 Calculated Osmolality 259 (280-300) L 11/28/18 05:50 C-Reactive Protein 29 mg/L (Less than 10) H 11/27/18 09:39 Lipase 4 Units/L (11-82) L 11/27/18 09:39 - Microbiology Findings Microbiology Findings: Microbiology, Last 48 Hours 11/27/18 17:56 Legionella Antigen - Final Urine,Clean Catch Streptococcus pneumoniae Antigen (M - Final 11/27/18 10:41 Influenza Types A,B Antigen - Final Nasopharyngeal 11/27/18 09:50 Blood Culture - Preliminary Peripheral Venipuncture Culture is incubating and being continuously monitored for growth. Final report to follow. 11/27/18 09:45 Blood Culture - Preliminary Peripheral Venipuncture Culture is incubating and being continuously monitored for growth. Final report to follow. - Clinical Findings Intake & Output: Intake & Output 11/28/18 11/28/18 11/28/18 07:59 15:59 23:59 Intake Total 0 / 0 Balance 0 / 0 - Attending Attestation I examined this patient and my medical decision-making was reviewed with the Resident Physician. I agree with the documented findings, disposition and treatment plan as described except to the extent set forth below. Patient seen and examined. Labs, radiology, chart personally reviewed. Agree with resident's history and physical, assessment, plan with following comments: TRAILER CHIEF: Patient follows commands, Pulmonary: Acceptable oxygenation and ventilation Patient had bronchoscopy successfully and preliminary is malignant. Explained this to the patient and family at the bedside. Patient will need oncology evaluation.
[2018-11-28] MEDS ORDERED: Azithromycin 500 MG in D5% in Water 250 ML IVPB SCH (14:00)
[2018-11-29] MEDS: *HR* HYDROcodone/Acet 5/325 mg TABLET PO PRN ×2 (01:00→07:02)
[2018-11-29] MEDS: Ketorolac 30 MG/ML VIAL IVP PRN ×2 (08:34→21:30)
[2018-11-29] MEDS ORDERED: Loratadine/Pseudophed (12 HR) 1 EACH TABLET PO SCH (09:00)
[2018-11-29] MEDS ORDERED: Loratadine/Pseudophed (12 HR) 1 EACH TABLET PO PRN (09:55)
--- NOTE | 2018-11-29 10:46 | Internal Med Progress Note ---
Hospitalist Progress Note - Encounter Date of Encounter: 11/29/18 Time of Encounter: 10:43 - Subjective Interval History: Patient seen and examined this morning at bedside. No acute overnight events. Could not have to sleep due to right-sided chest pain and back pain. Feels very anxious and occasionally feels choking from anxiety. Denies any bowel or bladder complaints. - Exam Vitals: Temp Pulse Resp BP Pulse Ox 98.9 F 72 15 112/71 93 11/29/18 03:48 11/29/18 07:59 11/29/18 07:59 11/29/18 07:59 11/29/18 07:59 Exam: General: In no acute distress. Conversant. tearful Respiratory exam: Rt lung field rhonchi, no accessory muscle use, Cardiovascular exam: RRR, +S1, +S2. no murmur, gallop, rubs. GI/Abdominal exam: Non-tender, Non-distended, normal bowel sounds, soft, no peritoneal signs. Extremities exam: full ROM, no pedal edema, no calf tenderness. Rt arm congenital deformity Neurological exam: CN II-XII intact, AO X3, no focal deficits. no pronater drift, facial droop, speech deficit Skin exam: No skin rash - Assessment and Plan (1) Lung mass Current Visit: Yes Status: Acute (2) GERD (gastroesophageal reflux disease) Current Visit: Yes Status: Chronic (3) Pneumonia Current Visit: Yes Status: Acute (4) Hypothyroid Current Visit: Yes Status: Chronic - Summary of Assessment and Plan Summary of Assessment and Plan: Lung mass - CT with extensive malignancy and mediastinal lymphadenopathy, no PE - s/p bronchoscopy - Will consult oncology Chest pain and low back pain - Low back pain long standing. Now with associated spasm. Start baclofen. - Chest pain mostly on Rt side. Will starte percocet and toradol for better pain control along with schedule acetaminophen. Post obstructive Pneumonia - c/w ceftriaxone. DC azithromycin - Legionella/strep antigen negative - f/u Blood and sputum cultures. GERD - c/w Nexium 20 mg daily Hypothyroid - c/w levothyroxine DVT Prophylaxis: - heparin SC Lives alone and back pain. Is ambulating without difficulty. Will get PT/SW consult for discharge planning. - Time Spent with Patient Total time spent is greater than 50% in coordination of care (as documented) at patient's floor/unit and/or counseling patient: Internal Medicine: Result - Labs CBC & Chem 7: 11/28/18 05:50 11/28/18 05:50 - ABG Interpretation ABG results: PT/INR, D-dimer PT 12.0 Seconds (9.4-12.1) 11/27/18 09:39 Consult Discharge Plan - Plan Referrals: Colopy,Dakota Horner DO [Primary Care Provider] - (2) GERD (gastroesophageal reflux disease) Qualifiers: Esophagitis presence: esophagitis presence not specified Qualified Code(s): K21.9 - Gastro-esophageal reflux disease without esophagitis (3) Pneumonia Qualifiers: Pneumonia type: due to unspecified organism Laterality: right Lung location: upper lobe of lung Qualified Code(s): J18.1 - Lobar pneumonia, unspecified organism (4) Hypothyroid Qualifiers: Hypothyroidism type: unspecified Qualified Code(s): E03.9 - Hypothyroidism, unspecified
[2018-11-29] MEDS: cefTRIAXone 1,000 MG in Water for inj. (sterile) 20 ML 10 ML IVP SCH (10:49)
[2018-11-29] MEDS: Azithromycin 500 MG in D5% in Water 250 ML IVPB SCH (10:49)
[2018-11-29] MEDS: Nicotine 14 MG PATCH.TD24 TD SCH (10:53)
[2018-11-29] MEDS: Lactobacillus 1 EACH CAP.SPRINK PO SCH ×2 (10:53→21:29)
[2018-11-29] MEDS: Baclofen 10 MG TABLET PO SCH ×2 (11:02→21:29)
[2018-11-29] MEDS: Acetaminophen 325 MG TABLET PO SCH ×2 (11:03→17:31)
[2018-11-29] MEDS ORDERED: Gadolinium Contrast Agent (WT Based) IV PRN (12:15)
[2018-11-29] MEDS ORDERED: Isovue-370 500 ML BOTTLE IVP ONE (12:15)
--- NOTE | 2018-11-29 13:22 | Oncology Inp Consult Note ---
<Celeste Crowley L - Last Filed: 11/29/18 18:06> Date of Encounter: 11/29/18 Time of Encounter: 11:00 Assessment and Plan (1) Hyponatremia Status: Acute Assessment and plan: Na 126 on presentation Serum Osm low 259, no hyperglycemia Plan: Likely SIADH in the setting of suspected malignancy Check urine osm, urine Na Recommended fluid restriction (2) Lung mass Status: Acute Assessment and plan: CTA of the chest in the ER which revealed extensive malignancy with a large tumor measuring approximately 9 x 6 cm extending from the right central lung into the right hilar area and mediastinum. Encasement of central bronchi and vessels mostly on the right. Mediastinal lymphadenopathy. Supraclavicular lymphadenopathy especially on the left. Foci of pneumonia in the right upper lobe. Small right pleural effusion. No evidence of acute pulmonary embolism. S/P bronchoscopy on 11/28/[address] Varela. 5 FNA samples from the subcarinal area were obtained, DEANNA was positive for malignancy. Plan: Radiographically concerning for small cell lung cancer, although lymphoma still remains in differential although lower on the list We are ok for discharge from oncology standpoint once cleared from medical standpoint--- will arrange for follow on Tuesday with Dr. Sanchez as outpatient CT abdomen/pelvis and MRI brain for staging LDH Continue xopenex Treatment for pneumonia per hospitalist team, currently on ceftriaxone, blood/sputum/BAL pending (3) Non-cardiac chest pain Status: Acute Assessment and plan: Right upper chest pain, worse with coughing and chronic back pain Plan: Started on baclofen, percocet 10/325, and toradol Will monitor effectiveness and use over the next 24 hours, she may benefit from addition of long acting if needed (4) DVT prophylaxis Status: Acute Assessment and plan: Continue Heparin SQ - Data of Consult Patient: new to practice Consult date: 11/29/18 Requesting Physician: Mary Mendez MD Primary Care Provider: Dakota Rahman - Consult Narrative Reason for consult: Right lung mass History of present illness: Ms. Greenwood is a 48 year old female with past medical history significant for tobacco abuse, hypothyroidism and deformity of the right upper extremity, who presented to [facility] ED with complaint of right upper chest pain and pain with cough. Patient has received a total of 5 rounds of antibiotics from her PCP since July for her refractory respiratory symptoms. Patient reports persistent cough that is productive at times in pain with breathing or coughing since around July. She denies headache, dizziness, visual changes, no significant shortness of breath, nausea, vomiting, constipation, diarrhea, signs or symptoms of bleeding, difficulty with ambulation or focal weakness. She does report some loose stool over the past 2 weeks. She reports subjective fevers and chills and night sweats over the past 2 weeks. She had a CTA of the chest in the ER which revealed extensive malignancy with a large tumor extending from the right central lung into the right hilar area and mediastinum. Encasement of central bronchi and vessels mostly on the right. Mediastinal lymphadenopathy. Supraclavicular lymphadenopathy especially on the left. Foci of pneumonia in the right upper lobe. Small right pleural effusion. No evidence of acute pulmonary embolism. Patient is also noted to be hyponatremic on presentation, Na 126. She was admitted with pulmonology consultation. She underwent bronchoscopy on 11/28/[address] Varela. 5 FNA samples from the subcarinal area were obtained, DEANNA was positive for malignancy. Patient endorses about a 10 pound weight loss and decreased appetite over the past 1 month. She maintains an active lifestyle and used to walk the bike trail over her lunch breaks but over the past year or so she has not been able to do so due to helping to care for her parents. 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 She does endorse feelings of increased fatigue over the past month and feeling as though "something is wrong." She has smoked since the age of 15, about 1 pack per day. NO alcohol or drug abuse. She has had chronic back pain since the age of 30 but feels as though symptoms have worsened since admission with laying in bed. She lives in [place]. Past Med Surg Social Fam HX - Past Medical History Medical history: GERD, thyroid disease, other Additional medical history: diverticulosis Psychiatric history: no psych history - Past Surgical History Surgical History: , hysterectomy Additional surgical history: ovary,colon resection - Social History Smoking Status: Current every day smoker Smokeless Tobacco Status: No Alcohol use: occasionally Drug use: none - Family History Mother Living Status: Still Living Hx Family Cardiac Disorders: Yes (CABG, HTN) Hx Family Respiratory Disorders: Yes (COPD) Hx Family Cancer: No Hx Family GI Disorders: No Hx Family Genitourinary Disorders: No Hx Family Endocrine Disorder: Yes (DM) Hx Family Musculoskeletal Disorders: No Hx Family Neurologic Disorders: Yes (CVA) Hx Family HEENT Disorders: No Hx Family Autoimmune Disorders: No Hx Family Reproductive Disorders: No Hx Family Psychosocial Disorders: No Hx Family Medical Disorders: No Medications and Allergies RX: Levothyroxine Sodium [Synthroid] 137 mcg PO DAILY 12/14/15 [History] RX: Lactobacillus [Culturelle] 1 cap PO BID 09/21/16 [History] Esomeprazole Magnesium [Nexium] 20 mg PO QAM 11/28/18 [History] Fexofenadine/Pseudoephedrine [Belle-D 24 Hour Tablet] 1 tab PO DAILY 11/28/18 [History] Allergy/AdvReac Type Severity Reaction Status Date / Time ciprofloxacin [From Cipro] AdvReac Diarrhea Verified 12/14/15 14:21 Constitutional: Present: anorexia, chills, fatigue, fever(s), night sweats, weakness, weight loss. Absent: headache(s) Eyes: Absent: change in vision Nose, mouth and throat: Absent: dysphagia, odynophagia Cardiovascular: Present: as per HPI, chest pain. Absent: orthopnea, palpitati ons Respiratory: Present: cough, chest congestion, pain with cough Additional comments: mild SOB Gastrointestinal: Absent: abdominal pain, nausea, vomiting Musculoskeletal: Present: back pain Integumentary: Absent: rash, wounds Neurological: Absent: confusion, focal weakness, frequent falls Psychiatric: Present: as per HPI Hematologic/Lymphatic: Present: as per HPI Oncology - Exam - Constitutional General appearance: cooperative, no acute distress, no febrile - Head Head exam: Present: atraumatic - ENT ENT exam: Present: mucous membranes moist, normal oropharynx - Respiratory Respiratory exam: Present: decreased breath sounds, CTAB. Absent: respiratory distress - Cardiovascular Cardiovascular exam: Present: RRR, +S1, +S2 - GI/Abdominal GI/Abdominal exam: Present: normal bowel sounds, soft. Absent: guarding, rebound, tenderness - Extremities Exam Extremities exam: Absent: calf tenderness, pedal edema Additional comments: RUE deformity - Neurological Exam Neurological exam: Present: alert, oriented X3, no focal deficits, strengths equal and symetr throughout - Psychiatric Additional comments: normal affect in current circumstance - Skin Skin exam: Present: dry, intact, normal color, warm Consult Discharge Plan - Plan Referrals: Dakota Rahman, [Primary Care Provider] - Inpatient Charges Provider: Dr. Elisha Sanchez <Wenceslao Sanchez - Last Filed: 11/29/18 20:31> Date of Encounter: 11/29/18 - Data of Consult Requesting Physician: Mary Mendez MD Primary Care Provider: Dakota Rahman - Attending Attestation I examined this patient and my medical decision-making was reviewed with the Advanced Practice Nurse. I agree with the documented findings, disposition and treatment plan as described except to the extent set forth below. Ms. Greenwood presents with persistent cough and worsening shortness of breath. CT imaging which I personally reviewed reveals a large tumor measuring appro ximately 9 x 6 cm extending from the right central lung into the right hilar area and mediastinum. There is extensive mediastinal adenopathy as well. Pursue the CT scan of the abdomen reveals to hypodense, cannot tress enhancing lesions involving the liver concerning for metastases. These were not previously present by imaging in 2016. MRI brain without metastasis. We will obtain outpatient PET/CT imaging to complete staging and further delineate the nature of these liver lesions. She is status post endobronchial biopsy with pathology pending. Clinically, I am concerned instructions of small cell carcinoma. Certainly non-small cell carcinoma or possibly lymphoma is a possibility although the latter is much less likely. Working on the assumption this is a lung carcinoma and most likely a small cell lung carcinoma, we discussed potential treatments and approaches to her cancer. These include chemotherapy with immunotherapy, potential for radiation therapy. She also requested potential second opinion at the [facility] which will help expedite. We discussed at the current time there are no buccal Trosper small cell lung cancer in the upfront setting at the [facility]. Words of encouragement were provided to the patient. Expectations were discussed. We will await pathology and PET/CT scan prior to finalizing treatment options. Patient may be discharged home from our perspective. If still here in the afternoon, we will by be by to visit if pathology is available to review. Inpatient Charges Provider: Dr. Elisha Sanchez Consult - Inpatient: [id number]
[2018-11-29] MEDS: *HR* Heparin 5,000 UNIT/ML VIAL SQ SCH ×2 (15:16→21:29)
[2018-11-29] MEDS: *HR* OxyCODONE/APAP 10/325 TABLET PO PRN ×2 (15:16→23:25)
[2018-11-30] MEDS: Acetaminophen 325 MG TABLET PO SCH ×2 (00:08→05:35)
[2018-11-30] MEDS: *HR* Heparin 5,000 UNIT/ML VIAL SQ SCH ×3 (05:00→20:39)
[2018-11-30 05:17] LABS: Lactate Dehydrogenase 210 Units/L (140-271)
[2018-11-30 06:02] LABS: Blood Urea Nitrogen 11 mg/dL (6-20); Carbon Dioxide 25 mEq/L (23-29); Chloride 96 mEq/L (98-107); Potassium 3.9 mEq/L (3.5-5.1); Sodium 130 mEq/L (136-145)
[2018-11-30 06:03] LABS: BUN/Creatinine Ratio 18 (6-26); Calcium 9.5 mg/dL (8.6-10.3); Glucose 88 mg/dL (70-105); Osmolality,Calculated 269 (280-300); eGFR For Non-African Americans > 60 (> 60)
[2018-11-30] MEDS: *HR* OxyCODONE/APAP 10/325 TABLET PO PRN ×3 (07:08→23:05)
[2018-11-30] MEDS ORDERED: Acetaminophen 325 MG TABLET PO PRN (09:10)
[2018-11-30] MEDS: Azithromycin 250 MG TABLET PO SCH (10:01)
[2018-11-30] MEDS: Baclofen 10 MG TABLET PO SCH ×2 (10:01→21:00)
[2018-11-30] MEDS: Lactobacillus 1 EACH CAP.SPRINK PO SCH ×2 (10:01→21:00)
[2018-11-30] MEDS: cefTRIAXone 1,000 MG in Water for inj. (sterile) 20 ML 10 ML IVP SCH (10:01)
[2018-11-30] MEDS: Nicotine 14 MG PATCH.TD24 TD SCH (10:02)
[2018-11-30] MEDS: Ketorolac 30 MG/ML VIAL IVP PRN ×2 (11:44→18:17)
--- NOTE | 2018-11-30 12:25 | Discharge Summary ---
- NOTES TO OUTPATIENT PROVIDER Notes to Outpatient Provider: Patient discharged with 5 days of pain medication and antibiotics. We will need follow-up with oncology. Patient asked to restrict fluid to 1.5 L a day. Patient will need MRI follow up to characterize the hepatic lesions found on CT. Orders not resulted at time of discharge: Pending orders 11/27/18 09:50 Culture,Blood [BC] Stat 11/28/18 Culture,Respiratory [RM] Routine 11/28/18 12:16 Cytology [PTH] Routine Date of Encounter: 11/30/18 Time of Encounter: 12:19 - Discharge Diagnosis (1) Lung mass Priority: Primary Status: Acute (2) GERD (gastroesophageal reflux disease) Priority: Secondary Status: Chronic Qualifiers: Esophagitis presence: esophagitis presence not specified Qualified Code(s): K21.9 - Gastro-esophageal reflux disease without esophagitis (3) Pneumonia Priority: Primary Status: Acute Qualifiers: Pneumonia type: due to unspecified organism Laterality: right Lung location: upper lobe of lung Qualified Code(s): J18.1 - Lobar pneumonia, unspecified organism (4) Hypothyroid Priority: Secondary Status: Chronic Qualifiers: Hypothyroidism type: unspecified Qualified Code(s): E03.9 - Hypothyroidism, unspecified (5) Hyponatremia Priority: Secondary Status: Acute (6) Pleuritic chest pain Priority: Secondary Status: Resolved Hospital course: Ms. Greenwood is a 48 year old female with past medical history of past medical history of hypothyroidism, [id number] history, GERD came in with right-sided chest pain. Patient was found to have right-sided lung mass with mediastinal lymphadenopathy and postobstructive pneumonia. Patient was started on ceftriaxone and azithromycin. Patient had a bronchoscopy by pulmonology and BAL and needle aspiration. Blood cultures and sputum cultures remained negative. Patient pain was managed with opiates and no know. Medication. Oncology evaluation was obtained. Patient likely has small cell cancer however lymphoma still in differential. CT abdomen and MRI brain was obtained for metastatic workup. Lesions were present in liver which needs further characterization with MRI. Brain MRI with hyperintensity lesion within supratentorial white matter. Patient otherwise doing well and needs to follow with oncology as outpatient. She will be discharged on pain regimen and antibiotics. Discharge discussed with: patient, family, nurse, health and wellness sales consultant - Time Spent with Patient Total time spent providing and/or coordinating discharge services: Time spent: Greater than 30 minutes (42) - Discharge Medications Prescriptions: New OxyCODONE/APAP 5/325 [Percocet 5/325 MG] 1 each PO Q8HR PRN 4 Days #12 tablet PRN Reason: Breakthrough Pain OxyCODONE ER (12 HR) [OxyCONTIN] 10 mg PO Q12HR 4 Days #8 tab.er.12h Amoxicillin/Clavulanate [Augmentin] 875 mg PO BIDWM 4 Days #8 tablet Baclofen 5 mg PO BID 5 Days #10 tablet Continue Levothyroxine Sodium [Synthroid] 137 mcg PO DAILY Lactobacillus [Culturelle] 1 cap PO BID Fexofenadine/Pseudoephedrine [Belle-D 24 Hour Tablet] 1 tab PO DAILY Esomeprazole Magnesium [Nexium] 20 mg PO QAM Home Medications: Levothyroxine Sodium [Synthroid] 137 mcg PO DAILY 12/14/15 [History] Lactobacillus [Culturelle] 1 cap PO BID 09/21/16 [History] Esomeprazole Magnesium [Nexium] 20 mg PO QAM 11/28/18 [History] Fexofenadine/Pseudoephedrine [Belle-D 24 Hour Tablet] 1 tab PO DAILY 11/28/18 [History] Amoxicillin/Clavulanate [Augmentin] 875 mg PO BIDWM 4 Days #8 tablet 11/30/18 [Rx] Baclofen 5 mg PO BID 5 Days #10 tablet 11/30/18 [Rx] OxyCODONE ER (12 HR) [OxyCONTIN] 10 mg PO Q12HR 4 Days #8 tab.er.12h 11/30/18 [Rx] OxyCODONE/APAP 5/325 [Percocet 5/325 MG] 1 each PO Q8HR PRN 4 Days #12 tablet 11/30/18 [Rx] Allergies/Adverse Reactions: Allergy/AdvReac Type Severity Reaction Status Date / Time ciprofloxacin [From Cipro] AdvReac Diarrhea Verified 12/14/15 14:21 Date of admission: 11/27/18 15:51 Primary care physician: Dakota Horner Colopy Consults: 11/27/18 13:00 Consult to Pulmonology [CONS] Routine Consulting Provider: [facility] Reason for Consult: Right lung mass near central bronchi Call Completed: Yes 11/27/18 16:55 Consult to Nutrition [CONS] Routine Comment: Consulting Provider: NUTRITION Reason for Dietary Consult: MST Score 11/28/18 09:05 Consult to Nurse Navigator [CONS] Routine Comment: pn 11/29/18 10:35 Consult to Oncology [CONS] Routine Consulting Provider: [facility] Reason for Consult: lung mass Call Completed: Yes 11/29/18 10:47 Consult to Physical Therapy [CONS] Routine Comment: Evaluate, develop and implement POC Reason for Consult: discharge planning Does patient have active BEDREST order?: No Is patient medically & hemodynamically stable?: Yes Discharging clinician: Mary Mendez - Constitutional Vitals: Temp Pulse Resp BP Pulse Ox 98.3 F 61 16 131/85 94 11/30/18 11:21 11/30/18 11:21 11/30/18 11:21 11/30/18 11:21 11/30/18 11:21 Exam: General: In no acute distress. Conversant. Respiratory exam: Rt lung field rhonchi, no accessory muscle use, Cardiovascular exam: RRR, +S1, +S2. no murmur, gallop, rubs. GI/Abdominal exam: Non-tender, Non-distended, normal bowel sounds, soft, no peritoneal signs. Extremities exam: full ROM, no pedal edema, no calf tenderness. Rt arm congenital deformity Neurological exam: CN II-XII intact, AO X3, no focal deficits. Skin exam: No skin rash - Patient Status Disposition: Home, Self-Care Condition: Fair - Discharge Instructions Follow Up With: Dakota Rahman DO [Primary Care Provider] - Forms: ED Satisfaction Letter - Diet and Activity Activity: increase activity as tolerated
--- NOTE | 2018-11-30 16:59 | Oncology Inp Progress Note ---
<Celeste Crowley L - Last Filed: 11/30/18 17:05> Date of Encounter: 11/30/18 Time of Encounter: 13:00 (1) Lung mass Current Visit: Yes Status: Acute Assessment and plan: CTA of the chest in the ER which revealed extensive malignancy with a large tumor measuring approximately 9 x 6 cm extending from the right central lung into the right hilar area and mediastinum. Encasement of central bronchi and vessels mostly on the right. Mediastinal lymphadenopathy. Supraclavicular lymphadenopathy especially on the left. Foci of pneumonia in the right upper lobe. Small right pleural effusion. No evidence of acute pulmonary embolism. S/P bronchoscopy on 11/28/[address] Varela. 5 FNA samples from the subcarinal area were obtained, DEANNA was positive for malignancy. MRI Brain without evidence of malignancy CT abdomen/pelvis with multifocal indeterminate hepatic hypoattenuating lesions, all new compared with prior CT concerning for metastatic disease Plan: Preliminary pathology consistent with small cell lung cancer PET scan as outpatient for restaging We are ok for discharge from oncology standpoint once cleared from medical standpoint--- patient is feeling overwhelmed and anxious about discharge Her coughing is poorly controlled, we have added hycodan syrup as needed, hold for sedation from baclofen/percocet Continue xopenex Treatment for pneumonia per hospitalist team, currently on ceftriaxone, blood/sputum/BAL pending (2) Non-cardiac chest pain Current Visit: Yes Status: Acute Assessment and plan: Right upper chest pain, worse with coughing and chronic back pain Plan: Started on baclofen, percocet 10/325, and toradol Pain is well controlled with current regimen, she may benefit from addition of long acting if needed (3) DVT prophylaxis Current Visit: Yes Status: Acute Assessment and plan: Continue Heparin SQ Oncology: Subj Interval history: Ms. Greenwood is doing as expected, she is working through the emotions of her diagnosis. She continues to have coughing spells which is productive at times. Pain is under good control. Appetite is good today. She is ambulating through halls. - Constitutional General appearance: cooperative, no acute distress, no febrile - Head Head exam: Present: atraumatic - ENT ENT exam: Present: mucous membranes moist, normal oropharynx - Respiratory Respiratory exam: Present: decreased breath sounds, CTAB. Absent: respiratory distress Additional comments: decreased posterior right upper lobe - Cardiovascular Cardiovascular exam: Present: RRR, +S1, +S2 - GI/Abdominal GI/Abdominal exam: Present: normal bowel sounds, soft. Absent: guarding, reboun d, tenderness - Extremities Exam Extremities exam: Present: normal inspection. Absent: calf tenderness - Neurological Exam Neurological exam: Present: alert, oriented X3, no focal deficits, strengths equal and symetr throughout - Psychiatric Psychiatric exam: Present: anxious, depressed Additional comments: tearful at times in conversation - Skin Skin exam: Present: dry, intact, normal color, warm Oncology: Obj Data - Labs CBC & Chem 7: 11/28/18 05:50 11/30/18 04:28 Consult Discharge Plan - Plan Referrals: Dakota Rahman DO [Primary Care Provider] - Prescriptions: RX: OxyCODONE/APAP 5/325 [Percocet 5/325 MG] 1 each PO Q8HR PRN 4 Days #12 tabl et PRN Reason: Breakthrough Pain OxyCODONE ER (12 HR) [OxyCONTIN] 10 mg PO Q12HR 4 Days #8 tab.er.12h Amoxicillin/Clavulanate [Augmentin] 875 mg PO BIDWM 4 Days #8 tablet RX: Baclofen 5 mg PO BID 5 Days #10 tablet Inpatient Charges Provider: Dr. Elisha Sanchez <DeannaWenceslao Nakia - Last Filed: 11/30/18 20:59> Date of Encounter: 11/30/18 Oncology: Obj Data - Labs CBC & Chem 7: 11/28/18 05:50 11/30/18 04:28 Inpatient Charges Provider: Dr. Elisha Sanchez Follow up - Inpatient: [id number] - Attending Attestation I examined this patient and my medical decision-making was reviewed with the Advanced Practice Nurse. I agree with the documented findings, disposition and treatment plan as described except to the extent set forth below. She is feeling sore in her chest secondary to cough. Breathing comfortably. Very anxious and saddened by the news she has received last few days. Pathology with preliminary result of small cell carcinoma. This was d/w the patient today. We discussed the high likelihood this is a metastatic process. She is anxious about initiating therapy and does not want to delay. As such I have arranged for her to receive Carboplatin/Etoposide/Atezolizumab starting Tuesday or Tuesday at the latest. We discussed the schedule and side effects of therapy. Information will be provided. PET/CT on Tuesday next week. F/u with me Tuesday. She may be d/c from our perspective. She would prefer tomorrow which is reasonable. We will sign off.
[2018-11-30] MEDS ORDERED: HYDROcodone BIT/Homatropine LQ 5 MG/5 ML UDC PO PRN (17:14)
[2018-12-01] MEDS: Ketorolac 30 MG/ML VIAL IVP PRN ×2 (00:23→11:53)
[2018-12-01] MEDS: *HR* Heparin 5,000 UNIT/ML VIAL SQ SCH ×2 (05:33→16:21)
[2018-12-01] MEDS: *HR* OxyCODONE/APAP 10/325 TABLET PO PRN ×2 (08:18→16:21)
[2018-12-01] MEDS: Baclofen 10 MG TABLET PO SCH (08:18)
[2018-12-01] MEDS: Lactobacillus 1 EACH CAP.SPRINK PO SCH (08:18)
[2018-12-01] MEDS: Azithromycin 250 MG TABLET PO SCH (08:18)
[2018-12-01] MEDS: Nicotine 14 MG PATCH.TD24 TD SCH (08:19)
[2018-12-01] MEDS: cefTRIAXone 1,000 MG in Water for inj. (sterile) 20 ML 10 ML IVP SCH (08:19)
--- NOTE | 2018-12-01 11:08 | Consult Note ---
Date of Encounter: 12/01/18 Time of Encounter: 10:35 Assessment & Recommendation (1) Adjustment disorder with anxiety Status: Acute Assessment & Recommendation: -Recommend starting patient on hydroxyzine 10 mg by mouth 3 times a day when necessary for anxiety. Patient may take additional dose one hour after if needed. Dosing, risks, side effects, and alternatives to treatment were discussed with patient, who reports understanding. Please note this medication was ordered by the service per request -Psychological treatment including individual therapy was discussed with patient, and patient declines this modality at this time -Patient was educated to follow up with psychiatric and psychological services when needed, as she declines a referral at this time. -Will sign off now as patient is being discharged. Postoperatively have any other questions or concerns History of Present Illness Patient: new to practice Requesting Physician: Mary Mendez MD Reason for consult: anxiety History of present illness: Ms. Greenwood is a 48 year old female with no significant past psychiatric history who was admitted on 11/27/2018 for chest pain with cancer and is consulted today for anxiety. She presented after a several month history of pneumonia with 5 antibiotic courses. She was having chest pain with cough. Imaging found cancerous lesions in her right lung that extended to her hilar and mediastinal region. She was admitted for these issues and is being followed by oncology. She is having anxiety and, thus, psychiatry was consulted. When speaking with the patient, she reports that she is dealing with her anxiety well. She reports that she has significant anxiety in the morning when she wakes up. She states that it is manageable at this time due to being able to call the nurses right away; however, she worries about being at home. She reports that she would like something for these times. She reports that she is "not a pill person." However, she is very concerned about morning anxiety. She explains that she will not take the pills unless she has to and does not want something powerful. She denies a significant past psychiatric history. Alert and oriented 4. Denies wanting therapy at this time, stating that she has significant supports in her life. She is hopeful for the future, stating that she will "live a long time" and will "fight this cancer." She denies significant depression currently. She denies issues with sleep and appetite. She denies SI, HI, AH, and VH. CC: Mary Mendez MD Past Med Surg Social Fam HX - Past Medical History Source: patient Medical history: GERD, thyroid disease, other - Past Psychiatric History Psychiatric history: Reports: no psych history Family psychiatric history: Unknown Family History of Suicide: Unknown - Past Surgical History Surgical History: , hysterectomy - Social History Smoking Status: Current every day smoker Smokeless Tobacco Status: No Alcohol use: occasionally Drug use: none Occupational status: unemployed Current living situation: Home Activity Level: Other Recent Out of Country Travel Within the Last 8 Weeks: No - Family History Mother Living Status: Still Living Hx Family Cardiac Disorders: Yes (CABG, HTN) Hx Family Respiratory Disorders: Yes (COPD) Hx Family Cancer: No Hx Family GI Disorders: No Hx Family Genitourinary Disorders: No Hx Family Endocrine Disorder: Yes (DM) Hx Family Musculoskeletal Disorders: No Hx Family Neurologic Disorders: Yes (CVA) Hx Family HEENT Disorders: No Hx Family Autoimmune Disorders: No Hx Family Reproductive Disorders: No Hx Family Psychosocial Disorders: No Hx Family Medical Disorders: No Medications & Allergies RX: Levothyroxine Sodium [Synthroid] 137 mcg PO DAILY 12/14/15 [History] RX: Lactobacillus [Culturelle] 1 cap PO BID 09/21/16 [History] RX: Esomeprazole Magnesium [Nexium] 20 mg PO QAM 11/28/18 [History] RX: Fexofenadine/Pseudoephedrine [Belle-D 24 Hour Tablet] 1 tab PO DAILY 11/28/18 [History] Amoxicillin/Clavulanate [Augmentin] 875 mg PO BIDWM 4 Days #8 tablet 11/30/18 [Rx] OxyCODONE ER (12 HR) [OxyCONTIN] 10 mg PO Q12HR 4 Days #8 tab.er.12h 11/30/18 [Rx] RX: Baclofen 5 mg PO BID 5 Days #10 tablet 11/30/18 [Rx] RX: OxyCODONE/APAP 5/325 [Percocet 5/325 MG] 1 each PO Q8HR PRN 4 Days #12 tabl et 11/30/18 [Rx] Ondansetron ODT [Zofran ODT] 4 mg SL Q6HR #30 tab.rapdis 12/01/18 [Rx] Promethazine [Phenergan] 25 mg PO Q6HR PRN #30 tablet 12/01/18 [Rx] RX: HydrOXYzine 10 mg PO TID PRN 4 Days #12 tablet 12/01/18 [Rx] RX: Magic Mouthwash [Magic Mouthwash BLM] 10 ml PO QID PRN #240 ml 12/01/18 [Rx] Allergy/AdvReac Type Severity Reaction Status Date / Time ciprofloxacin [From Cipro] AdvReac Diarrhea Verified 12/14/15 14:21 Review of Systems Respiratory: Reports: cough Psychiatric: Reports: anxiety. Denies: depression, abnormal sleep pattern, suicidal ideation, change in appetite, homicidal ideation, auditory hallucinations, visual hallucinations Psychiatry Exam - Constitutional Vitals: Temp Pulse Resp BP Pulse Ox 98.1 F 72 20 131/75 95 12/01/18 07:02 12/01/18 07:02 12/01/18 07:02 12/01/18 07:02 12/01/18 08:25 General appearance: age & developmentally appropriate, well-groomed, well- nourished, average Additional observations: Right hand not present, with the appearance of one phalange - Musculoskeletal Gait: other (Not assessed) Station: relaxed Strength & Tone: normal for patient - Psychiatric Patient Orientation: Yes Person, Yes Time, Yes Place, Yes Circumstance Level of alertness: Alert, Follows commands Behavior: calm, cooperative Psychomotor activity: Normal Eye Contact: Maintains Eye Contact Mood Description: Euthymic/stable Patient description of mood: "Good" Affect description: congruent with mood, full range Speech Volume: Normal Speech pattern: normal rate, normal rhythm, normal tone, fluent, spontaneous Language & Vocabulary: consistent with education Thought Process: Logical, Linear, Goal Oriented Thought Content: No Suicidal ideation, No Homicidal ideation, No Overt delusions Perceptual Disturbances: No Reacting to internal stimuli, No Auditory hallucinations, No Visual hallucinations Attention Span Ability: Capable of Focused Attention Memory Description: Grossly Intact Patient Reliability: Reliable Historian Fund of knowledge: Yes abstraction ability, Yes aware of current events Intelligence Estimate: Average Judgment: Good Insight: Full Results - Drug Levels and Toxicology Drug Levels and Toxicology: None noted this a.m. - Labs Labs: Laboratory Last Values WBC 3.2 K/mcL (4.3-11.1) L 11/28/18 05:50 RBC 4.28 M/mcL (3.82-4.97) 11/28/18 05:50 Hgb 13.3 g/dL (11.5-15.4) 11/28/18 05:50 Hct 37.4 % (35.3-44.9) 11/28/18 05:50 MCV 87.4 fL (83.0-100.0) 11/28/18 05:50 MCH 31.1 pg (28.0-33.3) 11/28/18 05:50 MCHC 35.6 g/dL (31.6-35.5) H 11/28/18 05:50 RDW 11.9 % (11.5-14.5) 11/28/18 05:50 Plt Count 149 K/mcL (140-400) 11/28/18 05:50 MPV 10.2 fL (9.4-12.4) 11/28/18 05:50 Immature Gran % 0.5 % (0-4) 11/27/18 09:39 Seg Neutrophils % 70.6 % 11/27/18 09:39 Lymphocytes % 19.7 % 11/27/18 09:39 Monocytes % 8.5 % 11/27/18 09:39 Eosinophils % 0.5 % 11/27/18 09:39 Basophils % 0.2 % 11/27/18 09:39 Neutrophils # 2.8 K/mcL (1.6-8.9) 11/27/18 09:39 Lymphocytes # 0.8 K/mcL (0.6-4.6) 11/27/18 09:39 Monocytes # 0.3 K/mcL (0.0-1.3) 11/27/18 09:39 Eosinophils # 0.0 K/mcL (0.0-0.6) 11/27/18 09:39 Basophils # 0.0 K/mcL (0.0-0.2) 11/27/18 09:39 PT 12.0 Seconds (9.4-12.1) 11/27/18 09:39 INR 1.1 11/27/18 09:39 APTT 32.4 Seconds (26.0-36.0) 11/27/18 09:39 Sodium 130 mEq/L (136-145) L 11/30/18 04:28 Potassium 3.9 mEq/L (3.5-5.1) 11/30/18 04:28 Chloride 96 mEq/L (98-107) L 11/30/18 04:28 Carbon Dioxide 25 mEq/L (23-29) 11/30/18 04:28 BUN 11 mg/dL (6-20) 11/30/18 04:28 Creatinine 0.61 mg/dL (0.60-1.20) 11/30/18 04:28 Est GFR ( Amer) > 60 (> 60) 11/30/18 04:28 Est GFR (Non-Af Amer) > 60 (> 60) 11/30/18 04:28 BUN/Creatinine Ratio 18 (6-26) 11/30/18 04:28 Glucose 88 mg/dL (70-105) 11/30/18 04:28 Calculated Osmolality 269 (280-300) L 11/30/18 04:28 Lactic Acid 0.5 mmol/L (0.5-2.2) 11/27/18 09:50 Calcium 9.5 mg/dL (8.6-10.3) 11/30/18 04:28 Magnesium 1.8 mg/dL (1.6-2.6) 11/28/18 05:50 Total Bilirubin 0.6 mg/dL (0.3-1.0) 11/27/18 09:39 Direct Bilirubin 0.1 mg/dL (0.0-0.2) 11/27/18 09:39 Indirect Bilirubin 0.5 mg/dL (0.0-1.2) 11/27/18 09:39 AST 14 Units/L (13-39) 11/27/18 09:39 ALT 10 Units/L (7-52) 11/27/18 09:39 Alkaline Phosphatase 61 Units/L (34-104) 11/27/18 09:39 Lactate Dehydrogenase 210 Units/L (140-271) 11/30/18 04:28 Troponin I < 0.03 ng/mL (< 0.04) 11/27/18 09:39 C-Reactive Protein 29 mg/L (Less than 10) H 11/27/18 09:39 Serum Total Protein 6.6 g/dL (6.4-8.9) 11/27/18 09:39 Albumin 4.0 g/dL (3.5-5.7) 11/27/18 09:39 Globulin 2.6 g/dL (2.4-3.5) 11/27/18 09:39 Albumin/Globulin Ratio 1.5 (1.1-2.2) 11/27/18 09:39 Lipase 4 Units/L (11-82) L 11/27/18 09:39 Urine Osmolality 771 mOsm/kg (300-1090) 11/29/18 13:09 Urine Sodium 16.4 mEq/L 11/29/18 13:09 - Impressions None noted this a.m. Consult Discharge Plan - Plan Instructions: Pneumonia (DC) Referrals: Colopy,Dakota Horner DO [Primary Care Provider] - Prescriptions: Ondansetron ODT [Zofran ODT] 4 mg SL Q6HR #30 tab.rapdis Promethazine [Phenergan] 25 mg PO Q6HR PRN #30 tablet PRN Reason: Nausea RX: OxyCODONE/APAP 5/325 [Percocet 5/325 MG] 1 each PO Q8HR PRN 4 Days #12 tablet PRN Reason: Breakthrough Pain OxyCODONE ER (12 HR) [OxyCONTIN] 10 mg PO Q12HR 4 Days #8 tab.er.12h Amoxicillin/Clavulanate [Augmentin] 875 mg PO BIDWM 4 Days #8 tablet RX: Baclofen 5 mg PO BID 5 Days #10 tablet RX: HydrOXYzine 10 mg PO TID PRN 4 Days #12 tablet PRN Reason: Anxiety RX: Magic Mouthwash [Magic Mouthwash BLM] 10 ml PO QID PRN #240 ml PRN Reason: mouth soreness - Attending Attestation I examined this patient and my medical decision-making was reviewed with the Resident Physician. I agree with the documented findings, disposition and treatment plan as described except to the extent set forth below.
--- NOTE | 2018-12-01 11:08 | Oncology Inp Progress Note ---
<Celeste Ashford L - Last Filed: 12/01/18 13:15> Date of Encounter: 12/01/18 Time of Encounter: 10:00 (1) Lung mass Status: Acute Assessment and plan: CTA of the chest in the ER which revealed extensive malignancy with a large tumor measuring approximately 9 x 6 cm extending from the right central lung into the right hilar area and mediastinum. Encasement of central bronchi and vessels mostly on the right. Mediastinal lymphadenopathy. Supraclavicular lymphadenopathy especially on the left. Foci of pneumonia in the right upper lobe. Small right pleural effusion. No evidence of acute pulmonary embolism. S/P bronchoscopy on 11/28/[address] Varela. 5 FNA samples from the subcarinal area were obtained, DEANNA was positive for malignancy. MRI Brain without evidence of malignancy CT abdomen/pelvis with multifocal indeterminate hepatic hypoattenuating lesions, all new compared with prior CT concerning for metastatic disease Plan: Preliminary pathology consistent with small cell lung cancer, final path still pending PET scan as outpatient for restaging We are ok for discharge from oncology standpoint once cleared from medical standpoint--- patient continues to feel overwhelmed and anxious about discharge Due to her worsening anxiety she had requested to start mediation PRN for her symptoms which is reasonable, hospitalist has already consulted psychiatry for recommendations Coughing now under better control with hycodan syrup as needed, hold for sedation from baclofen/percocet/oxycodone ER Continue xopenex Treatment for pneumonia per hospitalist team, transitioned to augmentin for d/c As part of our visit today, we discussed chemotherapy education which included information on the items listed below. Ms. Greenwood continues to feel overwhelmed in regards to her new diagnosis, the education was given in verbal and written format for them to review, high points were briefly discussed as this education seemed to be poorly received by patient at this time. Treatment: Carboplatin Day 1, Etoposide Day 1-3, Atexolizumab Day 1, Cycle every 21 days I covered the following information during visit: Side effects of each of the medications: Given in detail, with education handouts provided to patient and family). We discussed specific side effects in detail which includes but not limited to nausea, vomiting, diarrhea, constipation, myelosuppression and risk of infection, risk for reaction to treatment, neuropathy, hair loss, fatigue, mucositis and mouth sores, risk for secondary malignancy, ototoxicity, renal toxicity, among others. We discussed remedies, and when to contact the office for problems. Fertility issues: Reviewed. This is not a factor for the patient she is s/p partial hysterectomy Advance directives information: We will revisit as needed in the future Discuss possible OTC/ herbal interactions: Not Applicable at this time. Clinic processes discussed: Logistics on chemotherapy day, timing of laboratories, and reason for on treatment visits prior to treatment. Supportive Medications: For supportive measures she was given prescriptions for phenergan, zofran and magic mouthwash. Advised that pheneran may cause drowsiness and not to take with other depressing medications (cough syrup, baclofen, pain medications), spread out dosing of these medications, may take zofran with these medications if needed. Handouts were provided in relation to symptoms patient may experience such as fatigue, nausea, diarrhea etc., which includes supportive measures measures to help with these symptoms. Chemo calendar: To be provided at future appointment Timing of labs were discussed in relation to each visit/treatment. 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 May need access in future. Pain Management: Hospitalist has started Oxycodone ER 10 mg Q12H, she will continue percocet for breakthrough. Pain is currently well controlled. Patient is considered terminal and exempt from OAC 3731. Handling of body excretions: Safe handling of body secretions for 72 hours following treatment were discussed at today's visit, handout also provided. She does not have pets in the home, no contact with farm animals. Fever: If patient has fever 100.4 degrees or higher, she will call the office. If after hours, she will phone after hours line and for further instructions. Patient was advised to fever is after hours and 101 or 102 degrees she should go to the local emergency room for treatment evaluation. Large groups of people: Advised on risk of serious infection and to avoid any known sick contacts Clinical Trials screening: Kristi Warren, will do a pre-assessment prior to appointment. Genetics counseling: Based on initial history, does not require counseling at this time. Financial Services: Discussed that we have a financial services counselor, Deysi, available for any questions or concerns (2) Non-cardiac chest pain Status: Acute Assessment and plan: Right upper chest pain, worse with coughing and chronic back pain Plan: Hospitalist has started Oxycodone ER 10 mg Q12H, she will continue percocet for breakthrough. Pain is currently well controlled. Advised on depressant medication effects and to alternate dosing (spread out dosing) of baclofen, hycodan, percocet, phenergan due to respiratory depressant side effects/drowsiness Patient is considered terminal due to extensive stage small cell lung cancer and exempt from OAC 3731. (3) DVT prophylaxis Status: Acute Assessment and plan: Continue Heparin SQ Oncology: Subj Interval history: Ms. Greenwood was resting in her chair. She has been ambulating around hallways. Pain well controlled. Continues to have troublesome cough but states cough was much better overnight with the addition of hycodan syrup. She continues to be quite anxious, tearful at times, feels as though she may be ready to go home today but is very nervous. She states she feels comfortable being here where she can be continuously monitored. Words of encouragement were given. Patients son at bedside and is planning on checking in on her often. - Constitutional General appearance: cooperative, no acute distress, no febrile - Head Head exam: Present: atraumatic - ENT ENT exam: Present: mucous membranes moist, normal oropharynx - Respiratory Respiratory exam: Present: rhonchi. Absent: respiratory distress - Cardiovascular Cardiovascular exam: Present: RRR, +S1, +S2 - GI/Abdominal GI/Abdominal exam: Present: normal bowel sounds, soft. 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 - Neurological Exam Neurological exam: Present: alert, oriented X3, no focal deficits, strengths equal and symetr throughout - Psychiatric Psychiatric exam: Present: anxious, depressed - Skin Skin exam: Present: dry, intact, normal color, warm Oncology: Obj Data - Labs CBC & Chem 7: 11/28/18 05:50 11/30/18 04:28 Consult Discharge Plan - Plan Instructions: Pneumonia (DC) Referrals: Dakota Rahman DO [Primary Care Provider] - Prescriptions: Ondansetron ODT [Zofran ODT] 4 mg SL Q6HR #30 tab.rapdis Promethazine [Phenergan] 25 mg PO Q6HR PRN #30 tablet PRN Reason: Nausea RX: OxyCODONE/APAP 5/325 [Percocet 5/325 MG] 1 each PO Q8HR PRN 4 Days #12 tablet PRN Reason: Breakthrough Pain OxyCODONE ER (12 HR) [OxyCONTIN] 10 mg PO Q12HR 4 Days #8 tab.er.12h Amoxicillin/Clavulanate [Augmentin] 875 mg PO BIDWM 4 Days #8 tablet RX: Baclofen 5 mg PO BID 5 Days #10 tablet RX: HydrOXYzine 10 mg PO TID PRN 4 Days #12 tablet PRN Reason: Anxiety RX: Magic Mouthwash [Magic Mouthwash BLM] 10 ml PO QID PRN #240 ml PRN Reason: mouth soreness Inpatient Charges Provider: Dr. Elisha Perez <Louise Perez - Last Filed: 12/01/18 17:21> Date of Encounter: 12/01/18 Oncology: Subj Interval history: Stage IV, small cell lung cancer patient is following up next week with Dr. Sanchez to discuss and initiate systemic therapy. She is not needing oxygen and appears to be comfortable at rest she is not in any acute pain. Plan of care discussed with patient bedside today and she stated understanding she will keep up follow- up next week as scheduled. I examined this patient and my medical decision-making was reviewed with the Advanced Practice Nurse, Celeste Ashford. I agree with the documented findings, disposition and treatment plan as described except to the extent set forth below. Oncology: Obj Data - Labs CBC & Chem 7: 11/28/18 05:50 11/30/18 04:28 Inpatient Charges Provider: Dr. Elisha Perez Follow up - Inpatient: [id number]
[2018-12-01 11:38] VITALS: BP 118/73
--- NOTE | 2018-12-01 12:55 | Internal Med Progress Note ---
Hospitalist Progress Note - Encounter Date of Encounter: 12/01/18 Time of Encounter: 11:05 - Subjective Interval History: His incision and examined this morning. No acute overnight events. Occasional cough. Denies any bloody sputum. Denies any shortness of breath. Occasionally feels very anxious in the morning when she wakes up and needs anxiety me dications. Discharge held yesterday for psychiatric evaluation. - Exam Vitals: Temp Pulse Resp BP Pulse Ox 98.3 F 63 20 118/73 98 12/01/18 11:34 12/01/18 11:34 12/01/18 11:34 12/01/18 11:34 12/01/18 11:34 Exam: General: In no acute distress. Conversant. Respiratory exam: Rt lung field rhonchi, no accessory muscle use, Cardiovascular exam: RRR, +S1, +S2. no murmur, gallop, rubs. GI/Abdominal exam: Non-tender, Non-distended, Extremities exam: full ROM, no pedal edema, no calf tenderness. Rt arm congenital deformity Neurological exam: CN II-XII intact, AO X3, no focal deficits. Skin exam: No skin rash - Assessment and Plan (1) Lung mass Current Visit: Yes Status: Acute (2) GERD (gastroesophageal reflux disease) Current Visit: Yes Status: Chronic (3) Pneumonia Current Visit: Yes Status: Acute (4) Hypothyroid Current Visit: Yes Status: Chronic (5) Hyponatremia Current Visit: Yes Status: Acute (6) Pleuritic chest pain Current Visit: Yes Status: Resolved - Summary of Assessment and Plan Summary of Assessment and Plan: Lung mass - CT with extensive malignancy and mediastinal lymphadenopathy, no PE - s/p bronchoscopy. Positve for malignancy, likely small cell cancer. PET planned outpatient. - f/u oncology outpatient. Anxiety - Pyschiatry evaluation recommended hydroxyzine 10 TID prn. Chest pain and low back pain - Low back pain long standing. Now with associated spasm. - Controlled on current medication regimen. Post obstructive Pneumonia - Legionella/strep antigen negative - f/u Blood and sputum cultures NGTD - to finish augmentin outpatient for 4 days. GERD - c/w Nexium 20 mg daily Hypothyroid - c/w levothyroxine DVT Prophylaxis: - heparin SC Plan for DC today on pain regimen and antibiotics. . - Time Spent with Patient Total time spent is greater than 50% in coordination of care (as documented) at patient's floor/unit and/or counseling patient: Internal Medicine: Result - Labs CBC & Chem 7: 11/28/18 05:50 11/30/18 04:28 - ABG Interpretation ABG results: PT/INR, D-dimer PT 12.0 Seconds (9.4-12.1) 11/27/18 09:39 Consult Discharge Plan - Plan Referrals: Dakota Rahman DO [Primary Care Provider] - Prescriptions: Ondansetron ODT [Zofran ODT] 4 mg SL Q6HR #30 tab.rapdis Promethazine [Phenergan] 25 mg PO Q6HR PRN #30 tablet PRN Reason: Nausea OxyCODONE/APAP 5/325 [Percocet 5/325 MG] 1 each PO Q8HR PRN 4 Days #12 tablet PRN Reason: Breakthrough Pain OxyCODONE ER (12 HR) [OxyCONTIN] 10 mg PO Q12HR 4 Days #8 tab.er.12h Amoxicillin/Clavulanate [Augmentin] 875 mg PO BIDWM 4 Days #8 tablet Baclofen 5 mg PO BID 5 Days #10 tablet Magic Mouthwash [Magic Mouthwash BLM] 10 ml PO QID PRN #240 ml PRN Reason: mouth soreness (2) GERD (gastroesophageal reflux disease) Qualifiers: Esophagitis presence: esophagitis presence not specified Qualified Code(s): K21.9 - Gastro-esophageal reflux disease without esophagitis (3) Pneumonia Qualifiers: Pneumonia type: due to unspecified organism Laterality: right Lung location: upper lobe of lung Qualified Code(s): J18.1 - Lobar pneumonia, unspecified organism (4) Hypothyroid Qualifiers: Hypothyroidism type: unspecified Qualified Code(s): E03.9 - Hypothyroidism, unspecified
== END 2018-12-01 17:11 | disposition home or self-care (01) | DRG 180 ==
LOC: EMEROOARM 09:10 → 2ANU 15:51 → SUATTDRO 15:51 → 2ANU 16:18
PROVIDERS: ADMIT Internal Medicine; ATTEND Internal Medicine

== ENCOUNTER 2021-04-07 15:33 | Observation (INO) ==
[2021-04-07] MEDS ORDERED: Isovue-370 500 ML BOTTLE IVP ONE (16:52)
[2021-04-07] MEDS ORDERED: Metoclopramide 10 MG/2 ML VIAL IVP ONE (16:52)
[2021-04-07] MEDS ORDERED: 0.9 % Sodium Chloride 500 ML IVC STA (16:52)
[2021-04-07 17:57] LABS: Basophils % 0.4 %; Eosinophils % 0.4 %; Hematocrit 36.6 % (35.3-44.9); Hemoglobin 12.4 g/dL (11.5-15.4); Immature Granulocytes % 0.4 % (0-4); Lymphocytes # 0.4 K/mcL (0.6-4.6); Lymphocytes % 13.7 %; Mean Corpuscular HGB Conc 33.9 g/dL (31.6-35.5); Mean Corpuscular Hemoglobin 34.6 pg (28.0-33.3); Mean Corpuscular Volume 102.2 fL (83.0-100.0); Mean Platelet Volume 10.2 fL (9.4-12.4); Monocytes # 0.2 K/mcL (0.0-1.3); Neutrophils # 2.2 K/mcL (1.6-8.9); Platelet Count 163 K/mcL (140-400); Red Blood Count 3.58 M/mcL (3.82-4.97); Red Cell Distribution Width 13.5 % (11.5-14.5); Segmented Neutrophils % 78.1 %; White Blood Count 2.8 K/mcL (4.3-11.1)
[2021-04-07 18:15] LABS: BUN/Creatinine Ratio 13 (6-26); Blood Urea Nitrogen 8 mg/dL (6-20); Calcium 9.6 mg/dL (8.6-10.3); Carbon Dioxide 25 mEq/L (23-29); Chloride 96 mEq/L (98-107); Glucose 114 mg/dL (70-105); Osmolality,Calculated 271 (280-300); Potassium 3.7 mEq/L (3.5-5.1); Sodium 131 mEq/L (136-145); eGFR For African Americans > 60 (> 60); eGFR For Non-African Americans > 60 (> 60)
[2021-04-07] MEDS ORDERED: *HR* FentaNYL (PF) 100 MCG/2 ML VIAL IVP STA ×2 (18:15→21:05)
[2021-04-07] MEDS ORDERED: Ondansetron 4 MG/2 ML VIAL ONE ×2 (18:22→23:53)
[2021-04-07] MEDS ORDERED: Tetracaine 0.5% OPTH 80 DROP/4 ML BOTTLE RIGHT EYE ONE (20:22)
[2021-04-07] MEDS ORDERED: Fluorescein Sodium STRIP OP ONE (20:22)
[2021-04-07] MEDS ORDERED: Valproic Acid INJ 500 MG in 0.9 % Sodium Chloride 100 ML IVPB STA (20:43)
[2021-04-07] MEDS ORDERED: methylPREDNISolone 125 MG/2 ML VIAL IVP STA (20:46)
[2021-04-07] MEDS ORDERED: Gadolinium Contrast Agent (WT Based) IV PRN (21:08)
[2021-04-07] MEDS ORDERED: Vancomycin 1,250 MG/262.5 ML IV.SOLN IVPB ONE (23:00)
[2021-04-07] MEDS ORDERED: Meropenem 500 MG in Water for inj. (sterile) 10 ML IVP STA (23:01)
[2021-04-07] MEDS ORDERED: Acyclovir 500 MG in D5% in Water 100 ML IVPB STA (23:02)
[2021-04-07] MEDS ORDERED: *HR* HYDROmorphone (PF) 1 MG/ML SYRINGE IVP STA (23:03)
[2021-04-07 23:27] LABS: Red Blood Cell,CSF < 2000 RBC/mcL
[2021-04-07 23:28] LABS: Appearance,CSF Clear (Clear)
[2021-04-07 23:44] LABS: Glucose,CSF 72 mg/dL (40-70); Total Protein,CSF 54 mg/dL (15-45)
[2021-04-07] MEDS ORDERED: Ondansetron 4 MG/2 ML VIAL IVP ONE (23:54)
[2021-04-08] MEDS ORDERED: Acetaminophen 325 MG TABLET PO PRN (01:22)
[2021-04-08] MEDS ORDERED: Ondansetron 4 MG/2 ML VIAL IVP PRN (01:22)
[2021-04-08] MEDS ORDERED: Naloxone 0.4 MG/ML INJ IVP PRN (01:22)
[2021-04-08] MEDS ORDERED: Baclofen 10 MG TABLET PO PRN (02:58)
[2021-04-08] MEDS ORDERED: Loratadine/Pseudophed (12 HR) 1 EACH TABLET PO PRN (02:59)
[2021-04-08] MEDS ORDERED: OLANZAPINE 5 MG PO SCH (03:00)
[2021-04-08] MEDS: *HR* OxyCODONE/APAP 5/325 TABLET PO PRN ×4 (04:47→18:39)
[2021-04-08 05:20] LABS: Hematocrit 36.1 % (35.3-44.9); Hemoglobin 12.8 g/dL (11.5-15.4); Lymphocytes # 0.4 K/mcL (0.6-4.6); Lymphocytes % 8.6 %; Mean Corpuscular HGB Conc 35.5 g/dL (31.6-35.5); Mean Corpuscular Hemoglobin 35.2 pg (28.0-33.3); Mean Corpuscular Volume 99.2 fL (83.0-100.0); Mean Platelet Volume 10.2 fL (9.4-12.4); Monocytes # 0.2 K/mcL (0.0-1.3); Monocytes % 3.4 %; Neutrophils # 3.9 K/mcL (1.6-8.9); Platelet Count 180 K/mcL (140-400); Red Blood Count 3.64 M/mcL (3.82-4.97); Red Cell Distribution Width 13.5 % (11.5-14.5); White Blood Count 4.4 K/mcL (4.3-11.1)
[2021-04-08 05:27] LABS: Prothrombin Time 11.8 Seconds (9.4-12.1)
[2021-04-08 05:46] LABS: Alanine Aminotransferase 23 Units/L (7-52); Albumin 4.5 g/dL (3.5-5.7); Albumin/Globulin Ratio 1.5 (1.1-2.2); Alkaline Phosphatase 66 Units/L (34-104); Aspartate Amino Transferase 23 Units/L (13-39); BUN/Creatinine Ratio 15 (6-26); Bilirubin,Total 0.3 mg/dL (0.3-1.0); Blood Urea Nitrogen 9 mg/dL (6-20); Calcium 9.6 mg/dL (8.6-10.3); Carbon Dioxide 24 mEq/L (23-29); Chloride 97 mEq/L (98-107); Globulin 3.1 g/dL (2.4-3.5); Glucose 142 mg/dL (70-105); Magnesium 1.8 mg/dL (1.6-2.6); Osmolality,Calculated 273 (280-300); Potassium 3.9 mEq/L (3.5-5.1); Sodium 131 mEq/L (136-145); Total Protein 7.6 g/dL (6.4-8.9); eGFR For African Americans > 60 (> 60); eGFR For Non-African Americans > 60 (> 60)
[2021-04-08 08:58] LABS: Bilirubin,Urine Negative (Negative); Blood,Urine Negative (Negative); Clarity,Urine Clear (Clear); Color,Urine Light-Yellow (Yellow); Glucose,Urine (UA) 70 mg/dL (Normal); Ketones,Urine 20 mg/dL (Negative); Leukocyte Esterase,Urine Negative (Negative); Mucus,Urine Few per lpf (None-Few); Nitrite,Urine Negative (Negative); PH,Urine 6.5 pH Units (5.0-8.0); Protein,Urine 30 mg/dL (Neg-Trace); RBC,Urine 0-3 per hpf (0-3); Specific Gravity,Urine 1.029 (1.010-1.025); Squamous Epithelial Cell,Urine Few per hpf (None-Few); Urobilinogen,Urine Normal (Normal); WBC,Urine 0-3 per hpf (0-3)
[2021-04-08 09:21] LABS: Amphetamine Screen,Urine Negative ng/mL (Cutoff=1000); Barbiturate Screen,Urine Negative ng/mL (Cutoff=200); Benzodiazepines Screen,Urine Negative ng/mL (Cutoff=200); Cannabinoid Screen,Urine Positive ng/mL (Cutoff = 50); Cocaine Screen,Urine Negative ng/mL (Cutoff= 300); Opiate Screen,Urine Negative ng/mL (Cutoff=300); Phencyclidine Screen,Urine Negative ng/mL (Cutoff=25)
[2021-04-08] MEDS: Venlafaxine XR (24 HR) 75 MG CAP.ER.24H PO SCH (10:05)
[2021-04-08] MEDS: Cyanocobalamin (B-12) 1,000 MCG TABLET PO SCH (10:05)
[2021-04-08] MEDS: Ascorbic Acid 500 MG TABLET PO SCH (10:05)
[2021-04-08] MEDS: Lactobacillus 1 EACH CAP.SPRINK PO SCH (10:06)
[2021-04-08] MEDS ORDERED: Isovue-370 500 ML BOTTLE IVP ONE (10:58)
[2021-04-08] MEDS ORDERED: GADOBUTROL 30 MMOL/30 ML VIAL IVP ONE (13:14)
[2021-04-08] MEDS ORDERED: Prochlorperazine 10 MG/2 ML VIAL IVP PRN (14:36)
[2021-04-08] MEDS: Gabapentin 300 MG CAPSULE PO SCH ×2 (17:08→19:02)
[2021-04-08] MEDS: Fluticasone Propionate Nasal 50 MCG/SPRAY BOTTLE NS SCH (18:44)
[2021-04-09] MEDS: *HR* OxyCODONE/APAP 5/325 TABLET PO PRN ×3 (00:40→11:20)
[2021-04-09 05:50] LABS: Hematocrit 34.2 % (35.3-44.9); Hemoglobin 11.8 g/dL (11.5-15.4); Mean Corpuscular HGB Conc 34.5 g/dL (31.6-35.5); Mean Corpuscular Volume 101.5 fL (83.0-100.0); Mean Platelet Volume 9.7 fL (9.4-12.4); Platelet Count 170 K/mcL (140-400); Red Blood Count 3.37 M/mcL (3.82-4.97); White Blood Count 4.8 K/mcL (4.3-11.1)
[2021-04-09 06:02] LABS: BUN/Creatinine Ratio 21 (6-26); Blood Urea Nitrogen 14 mg/dL (6-20); Calcium 9.2 mg/dL (8.6-10.3); Carbon Dioxide 29 mEq/L (23-29); Chloride 99 mEq/L (98-107); Glucose 94 mg/dL (70-105); Osmolality,Calculated 276 (280-300); Phosphorous 2.3 mg/dL (2.7-4.5); Potassium 3.5 mEq/L (3.5-5.1); Sodium 133 mEq/L (136-145); eGFR For African Americans > 60 (> 60); eGFR For Non-African Americans > 60 (> 60)
[2021-04-09 07:38] VITALS: BP 144/86; PULSE 91; TEMP 97.9; O2SAT 95
[2021-04-09] MEDS: Cyanocobalamin (B-12) 1,000 MCG TABLET PO SCH (11:19)
[2021-04-09] MEDS: Ascorbic Acid 500 MG TABLET PO SCH (11:19)
[2021-04-09] MEDS: Lactobacillus 1 EACH CAP.SPRINK PO SCH (11:19)
[2021-04-09] MEDS: Fluticasone Propionate Nasal 50 MCG/SPRAY BOTTLE NS SCH (11:20)
[2021-04-09] MEDS: Gabapentin 300 MG CAPSULE PO SCH (11:20)
[2021-04-09] MEDS: Venlafaxine XR (24 HR) 75 MG CAP.ER.24H PO SCH (11:20)
[2021-04-12 16:04] LABS: Enterovirus RNA Qual (PCR) NOT DETECTED
[2021-04-14 10:30] LABS: HSV 1 Glycoprotein G IgG CSF 0.03 IV (<=0.89)
== END 2021-04-09 14:17 | disposition home or self-care (01) ==
LOC: EMEROOARM 15:33 → 3NENU 15:33 → SUATTDRO 04-08 01:01 → 3NENU 04-08 02:20
PROVIDERS: ADMIT Internal Medicine; ATTEND Internal Medicine

== ENCOUNTER 2021-09-17 13:48 | Inpatient (IN) ==
[2021-09-17] MEDS ORDERED: Isovue-370 500 ML BOTTLE IVP ONE (14:12)
[2021-09-17 14:28] LABS: Basophils % 0.2 %; Eosinophils % 0.4 %; Hematocrit 29.7 % (35.3-44.9); Hemoglobin 9.9 g/dL (11.5-15.4); Immature Granulocytes % 0.5 % (0-4); Lymphocytes # 0.2 K/mcL (0.6-4.6); Lymphocytes % 2.7 %; Mean Corpuscular HGB Conc 33.3 g/dL (31.6-35.5); Mean Corpuscular Hemoglobin 32.7 pg (28.0-33.3); Mean Platelet Volume 9.9 fL (9.4-12.4); Monocytes # 0.7 K/mcL (0.0-1.3); Monocytes % 8.1 %; Neutrophils # 7.5 K/mcL (1.6-8.9); Platelet Count 189 K/mcL (140-400); Red Blood Count 3.03 M/mcL (3.82-4.97); Red Cell Distribution Width 15.9 % (11.5-14.5); Segmented Neutrophils % 88.1 %; White Blood Count 8.5 K/mcL (4.3-11.1)
[2021-09-17 14:36] LABS: INR 1.2; Prothrombin Time 13.1 Seconds (9.4-12.1)
[2021-09-17 14:39] LABS: Activated Partial Thrombo Time 29.7 Seconds (26.0-36.0)
[2021-09-17 14:45] LABS: Alanine Aminotransferase 9 Units/L (7-52); Albumin 3.5 g/dL (3.5-5.7); Albumin/Globulin Ratio 1.1 (1.1-2.2); Alkaline Phosphatase 69 Units/L (34-104); Aspartate Amino Transferase 15 Units/L (13-39); BUN/Creatinine Ratio 29 (6-26); Bilirubin,Direct 0.2 mg/dL (0.0-0.2); Bilirubin,Indirect 0.4 mg/dL (0.0-1.0); Bilirubin,Total 0.6 mg/dL (0.3-1.0); Blood Urea Nitrogen 15 mg/dL (6-20); Calcium 9.8 mg/dL (8.6-10.3); Carbon Dioxide 29 mEq/L (23-29); Chloride 84 mEq/L (98-107); Globulin 3.2 g/dL (2.4-3.5); Glucose 90 mg/dL (70-105); Magnesium 1.8 mg/dL (1.6-2.6); Osmolality,Calculated 260 (280-300); Phosphorous 3.4 mg/dL (2.7-4.5); Potassium 3.8 mEq/L (3.5-5.1); Sodium 125 mEq/L (136-145); Total Protein 6.7 g/dL (6.4-8.9); Troponin I < 0.03 ng/mL (< 0.04); eGFR For African Americans > 60 (> 60); eGFR For Non-African Americans > 60 (> 60)
[2021-09-17 15:31] LABS: Bilirubin,Urine Negative (Negative); Blood,Urine Negative (Negative); Clarity,Urine Clear (Clear); Color,Urine Yellow (Yellow); Glucose,Urine (UA) Normal (Normal); Hyaline Casts,Urine Few per lpf (None Seen); Ketones,Urine 100 mg/dL (Negative); Leukocyte Esterase,Urine Trace (Negative); Mucus,Urine Few per lpf (None-Few); Nitrite,Urine Negative (Negative); Protein,Urine 50 mg/dL (Neg-Trace); RBC,Urine 0-3 per hpf (0-3); Specific Gravity,Urine 1.028 (1.010-1.025); Squamous Epithelial Cell,Urine Moderate per hpf (None-Few); Urobilinogen,Urine Normal (Normal)
[2021-09-17 15:45] LABS: Adenovirus Not Detected (Not Detect); Bordetella Pertussis Not Detected (Not Detect); Chlamydophila pneumoniae Not Detected (Not Detect); Coronavirus 229E Not Detected (Not Detect); Coronavirus HKU1 Not Detected (Not Detect); Coronavirus NL63 Not Detected (Not Detect); Coronavirus OC43 Not Detected (Not Detect); Human Metapneumovirus Not Detected (Not Detect); Human Rhinovirus/Enterovirus Not Detected (Not Detect); Influenza A Subtype 2009 H1 Not Detected (Not Detect); Influenza B Not Detected (Not Detect); Mycoplasma pneumoniae Not Detected (Not Detect); Parainfluenza Virus 1 Not Detected (Not Detect); Parainfluenza Virus 2 Not Detected (Not Detect); Parainfluenza Virus 3 Not Detected (Not Detect); Parainfluenza Virus 4 Not Detected (Not Detect); Respiratory Syncytial Virus Not Detected (Not Detect); SARS-CoV-2 Not Detected (Not Detect)
[2021-09-17] MEDS ORDERED: Piperacillin/Tazobactam 3.375 GM in 0.9 % Sodium Chloride Mini Bag 100 ML IVPB ONE (17:02)
[2021-09-17] MEDS ORDERED: 0.9 % Sodium Chloride 500 ML IV ONE (17:02)
[2021-09-17] MEDS ORDERED: Acetaminophen 325 MG TABLET PO PRN ×2 (17:34→18:15)
[2021-09-17] MEDS ORDERED: *HR* HYDROcodone/Acet 5/325 mg TABLET PO PRN ×2 (17:34→18:15)
[2021-09-17] MEDS ORDERED: Ondansetron 4 MG/2 ML VIAL IVP PRN (17:34)
[2021-09-17] MEDS ORDERED: Naloxone 0.4 MG/ML INJ IVP PRN (17:34)
[2021-09-17] MEDS ORDERED: Albuterol 2.5 MG/3 ML NEBULIZER IH PRN (17:38)
[2021-09-17] MEDS ORDERED: Vancomycin (wt based) 1,000 MG VIAL IVPB SCH (18:00)
[2021-09-17] MEDS ORDERED: Loratadine/Pseudophed (12 HR) 1 EACH TABLET PO PRN (18:08)
[2021-09-17] MEDS ORDERED: Baclofen 10 MG TABLET PO PRN (18:08)
[2021-09-17] MEDS ORDERED: Morphine Sulfate 2 MG/ML SYRINGE IVP PRN ×2 (18:15→18:23)
[2021-09-17] MEDS: ALPRAZolam 0.25 MG TABLET PO PRN (18:53)
[2021-09-17] MEDS ORDERED: Ipratropium/Albuterol Neb 3 ML IH SCH (20:00)
[2021-09-17] MEDS ORDERED: Ipratropium/Albuterol Neb 3 ML ONE (20:08)
[2021-09-17] MEDS ORDERED: Budesonide/Formoterol 160/4.5 1 PUFF INH IH ONE (20:08)
[2021-09-17] MEDS: Budesonide/Formoterol 160/4.5 1 PUFF INH IH SCH (20:19)
[2021-09-17] MEDS: Ipratropium/Albuterol Neb 3 ML IH SCH (20:23)
[2021-09-17] MEDS: D5% in 0.9% NACL 1,000 ML IVC SCH (20:51)
[2021-09-17] MEDS: *HR* OxyCODONE Immed Rel 5 MG TABLET PO PRN (23:13)
[2021-09-18] MEDS ORDERED: Aztreonam 1,000 MG in Water for inj. (sterile) 10 ML IVP SCH
[2021-09-18] MEDS ORDERED: Melatonin 3 MG TABLET PO PRN (00:07)
[2021-09-18] MEDS: Aztreonam 1,000 MG in 0.9 % Sodium Chloride Mini Bag 100 ML IVP SCH ×2 (00:18→10:04)
[2021-09-18] MEDS: *HR* OxyCODONE Immed Rel 5 MG TABLET PO PRN ×2 (03:30→12:51)
[2021-09-18] MEDS: D5% in 0.9% NACL 1,000 ML IVC SCH ×2 (03:32→14:16)
[2021-09-18] MEDS: Ipratropium/Albuterol Neb 3 ML IH SCH ×4 (03:44→19:34)
[2021-09-18] MEDS: ALPRAZolam 0.25 MG TABLET PO PRN ×3 (03:44→23:26)
[2021-09-18] MEDS: *HR* Enoxaparin 40 MG/0.4 ML SYRINGE SQ SCH (05:55)
[2021-09-18 06:25] LABS: INR 1.2; Prothrombin Time 13.1 Seconds (9.4-12.1)
[2021-09-18] MEDS: Budesonide/Formoterol 160/4.5 1 PUFF INH IH SCH ×2 (08:34→19:34)
[2021-09-18] MEDS: Cyanocobalamin (B-12) 1,000 MCG TABLET PO SCH (10:05)
[2021-09-18] MEDS: Multivit/Ca/Min/Fe/FA 1 TAB TABLET PO SCH (10:05)
[2021-09-18] MEDS: Ascorbic Acid 500 MG TABLET PO SCH (10:05)
[2021-09-18] MEDS: Venlafaxine XR (24 HR) 75 MG CAP.ER.24H PO SCH (10:05)
[2021-09-18] MEDS: *HR* OxyCODONE ER (12 HR) 40 MG TABLET PO SCH ×2 (10:05→20:48)
[2021-09-18] MEDS: Lactobacillus 1 EACH CAP.SPRINK PO SCH (10:05)
[2021-09-18 15:16] LABS: RBC,Pleural Fluid 3000 RBC/mcL
[2021-09-18 15:23] LABS: RBC,Pleural Fluid < 2000 RBC/mcL
[2021-09-18 15:51] LABS: Total Protein,Pleural Fluid 2.2 g/dL
[2021-09-18 15:51] LABS: Total Protein,Pleural Fluid 2.6 g/dL
[2021-09-18 16:28] LABS: Appearance of Pleural Fl Hazy (Clear); Basophils,Pleural Fluid 0 %; Eosinophils,Pleural Fluid 0 %
[2021-09-18 16:33] LABS: Basophils,Pleural Fluid 0 %; Eosinophils,Pleural Fluid 0 %
[2021-09-18 16:34] LABS: Appearance of Pleural Fl Clear (Clear)
[2021-09-18] MEDS: Piperacillin/Tazobactam 3.375 GM in 0.9 % Sodium Chloride Mini Bag 100 ML IVPB SCH ×2 (16:47→23:12)
[2021-09-18] MEDS: 0.9 % Sodium Chloride 1,000 ML IVC SCH (21:02)
[2021-09-18] MEDS: *HR* Metoprolol 5 MG/5 ML VIAL IVP PRN (23:12)
[2021-09-19] MEDS: Ipratropium/Albuterol Neb 3 ML IH SCH ×4 (03:16→20:03)
[2021-09-19] MEDS ORDERED: Vancomycin 1,250 MG/262.5 ML IV.SOLN IVPB SCH ×2 (06:00→20:00)
[2021-09-19] MEDS: *HR* OxyCODONE Immed Rel 5 MG TABLET PO PRN (06:15)
[2021-09-19] MEDS: *HR* Enoxaparin 40 MG/0.4 ML SYRINGE SQ SCH (06:15)
[2021-09-19] MEDS: *HR* Metoprolol 5 MG/5 ML VIAL IVP PRN (06:16)
[2021-09-19 06:29] LABS: INR 1.2
[2021-09-19] MEDS: 0.9 % Sodium Chloride 1,000 ML IVC SCH (06:45)
[2021-09-19] MEDS: Piperacillin/Tazobactam 3.375 GM in 0.9 % Sodium Chloride Mini Bag 100 ML IVPB SCH (07:35)
[2021-09-19] MEDS: *HR* OxyCODONE ER (12 HR) 40 MG TABLET PO SCH ×2 (07:36→21:13)
[2021-09-19] MEDS: Cyanocobalamin (B-12) 1,000 MCG TABLET PO SCH (07:36)
[2021-09-19] MEDS: Ascorbic Acid 500 MG TABLET PO SCH (07:36)
[2021-09-19] MEDS: Lactobacillus 1 EACH CAP.SPRINK PO SCH (07:36)
[2021-09-19] MEDS: Multivit/Ca/Min/Fe/FA 1 TAB TABLET PO SCH (07:36)
[2021-09-19] MEDS: Venlafaxine XR (24 HR) 75 MG CAP.ER.24H PO SCH (07:37)
[2021-09-19] MEDS: Levalbuterol Neb 1.25 MG/3 ML IH SCH ×3 (10:08→20:02)
[2021-09-19] MEDS: Budesonide/Formoterol 160/4.5 1 PUFF INH IH SCH ×2 (10:10→20:02)
[2021-09-19 13:00] LABS: Alanine Aminotransferase 8 Units/L (7-52); Albumin 2.9 g/dL (3.5-5.7); Alkaline Phosphatase 65 Units/L (34-104); Aspartate Amino Transferase 14 Units/L (13-39); BUN/Creatinine Ratio 23 (6-26); Bilirubin,Total 0.3 mg/dL (0.3-1.0); Blood Urea Nitrogen 21 mg/dL (6-20); Calcium 9.6 mg/dL (8.6-10.3); Carbon Dioxide 26 mEq/L (23-29); Chloride 98 mEq/L (98-107); Glucose 112 mg/dL (70-105); Osmolality,Calculated 278 (280-300); Potassium 4.1 mEq/L (3.5-5.1); Sodium 132 mEq/L (136-145); Total Protein 5.9 g/dL (6.4-8.9); eGFR For African Americans > 60 (> 60); eGFR For Non-African Americans > 60 (> 60)
[2021-09-19 13:01] LABS: Hemoglobin 10.2 g/dL (11.5-15.4); Mean Corpuscular HGB Conc 31.9 g/dL (31.6-35.5); Mean Corpuscular Hemoglobin 33.1 pg (28.0-33.3); Mean Corpuscular Volume 103.9 fL (83.0-100.0); Mean Platelet Volume 10.1 fL (9.4-12.4); Platelet Count 198 K/mcL (140-400); Red Blood Count 3.08 M/mcL (3.82-4.97); Red Cell Distribution Width 16.3 % (11.5-14.5); White Blood Count 11.9 K/mcL (4.3-11.1)
[2021-09-19] MEDS ORDERED: ALPRAZolam 0.25 MG TABLET PO PRN (13:14)
[2021-09-19] MEDS ORDERED: Cefepime HCl 1,000 MG in 0.9 % Sodium Chloride Mini Bag 100 ML IVPB SCH ×2 (14:00→18:00)
[2021-09-19] MEDS ORDERED: Acetylcysteine 10% 2 ML INHSOL IH SCH (16:00)
[2021-09-19] MEDS: Acetylcysteine 10% 2 ML INHSOL IH SCH ×2 (16:21→20:02)
[2021-09-19 23:19] VITALS: O2SAT 92
[2021-09-20 00:46] VITALS: BP 113/75; PULSE 130; TEMP 98.3
[2021-09-20] MEDS: Ipratropium/Albuterol Neb 3 ML IH SCH (08:06)
[2021-09-20] MEDS: Budesonide/Formoterol 160/4.5 1 PUFF INH IH SCH (08:06)
[2021-09-20] MEDS: Levalbuterol Neb 1.25 MG/3 ML IH SCH (08:06)
[2021-09-20] MEDS: Acetylcysteine 10% 2 ML INHSOL IH SCH (08:07)
[2021-09-20] MEDS ORDERED: *HR* EPINEPHrine 1 MG/10 ML SYRINGE IVP ONE ×2 (10:50)
== END 2021-09-20 10:51 | disposition expired | DRG 180 ==
LOC: 3NENU 13:48 → EMEROOARM 13:48 → SUATTDRO 18:18 → 3NENU 18:35
PROVIDERS: ADMIT Internal Medicine; ATTEND Family Medicine